=== PATIENT | male | born 1950 | race Caucasian/White ===

== ENCOUNTER 2016-12-08 10:54 | Emergency (ER) | payer OTHER ==
[~2016-12-08] VITALS: Ht 175.3 cm; Wt 84.0 kg
[~2016-12-08 10:54] MED LIST: ASPI81 PO; AZIT250T43 PO; FENO50TA PO; FISH1000 PO; FLAX10008 OR; LISI-360 PO; METO50TA PO; PROT40TA PO; SAW160TA PO; VITA100017 PO; VITA400C28 PO; VITA400C70 PO; ZOCO10TA PO
[2016-12-08 10:57] VITALS: BP 141/77; PULSE 69; RESP 16; TEMP 99.4; O2SAT 97
[2016-12-08] MEDS ORDERED: SODIUM CHLOR 0.9% 1000 ML INJ 1,000 ML IV SCH ×3 (11:33→12:49)
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
--- NOTE | 2016-12-08 11:40 | PD ---
Physical Exam Narrative Patient was seen by my research assistant member and by myself. Data Data Last Documented VS Vital Signs Date Time Temp Pulse Resp B/P (MAP) Pulse Ox O2 Delivery O2 Flow Rate FiO2 12/08/16 10:57 99.4 69 16 141/77 (98) 97 MDM Supervised Visit with FLO: Yes Santiago Almeida MD Dec 08, 2016 11:40
[2016-12-08] MEDS ORDERED: TETANUS/DIPHTHERIA TOXOID ADULT 0.5 ML VIAL IM ONE (11:45)
[2016-12-08] MEDS ORDERED: SODIUM CHLORIDE 0.9% FLUSH 10 ML FLUSH IV FLUSH PRN (11:45)
[2016-12-08] MEDS ORDERED: ACETAMINOPHEN 325 MG TAB PO ONE (11:45)
[2016-12-08] MEDS ORDERED: KETOROLAC TROMETHAMINE 30 MG/ML (IVP) VIAL IV PUSH ONE ×2 (11:45)
[2016-12-08 12:27] LABS: AUTOMATED NEUTROPHIL # 8.1 TH/MM3 (1.8-7.7); BASOPHIL # 0.1 TH/MM3 (0-0.2); BASOPHIL % 0.9 % (0.0-2.0); EOSINOPHIL # 0.1 TH/MM3 (0-0.4); EOSINOPHIL % 0.9 % (0.0-4.0); HEMO FLAGS DIFF FINAL; LYMPH % 6.8 % (9.0-44.0); LYMPHOCYTE # 0.7 TH/MM3 (1.0-4.8); MEAN CELL VOLUME 89.5 FL (80.0-100.0); MEAN CORPUSCULAR HEMOGLOBIN 30.9 PG (27.0-34.0); MEAN CORPUSCULAR HGB CONC 34.5 % (32.0-36.0); MONO % 10.1 % (0.0-8.0); NEUT % 81.3 % (16.0-70.0); PLATELET COUNT 240 TH/MM3 (150-450); RED BLOOD COUNT 5.59 MIL/MM3 (4.50-5.90); RED CELL DISTRIBUTION WIDTH 14.6 % (11.6-17.2); WHITE BLOOD COUNT 9.9 TH/MM3 (4.0-11.0)
[2016-12-08 12:42] LABS: ALT (GPT) 50 U/L (12-78); ANION GAP 9 MEQ/L (5-15); AST (GOT) 30 U/L (15-37); BICARBONATE 26.9 MEQ/L (21.0-32.0); BLOOD UREA NITROGEN 11 MG/DL (7-18); CHLORIDE 98 MEQ/L (98-107); GLOMERULAR FILTRATION RATE 63 ML/MIN (>89); POTASSIUM 3.8 MEQ/L (3.5-5.1); SODIUM (NA) 134 MEQ/L (136-145)
[2016-12-08 12:45] LABS: ALKALINE PHOSPHATASE 106 U/L (45-117); TOTAL BILIRUBIN ADULT 0.9 MG/DL (0.2-1.0)
[2016-12-08 12:46] LABS: BLOOD, URINE NEG (NEG); GLUCOSE,URINE NEG (NEG); KETONE, URINE NEG (NEG); MUCUS URINE FEW /lpf (OCC); NITRITE,URINE NEG (NEG); PH, URINE 5.5 (5.0-8.5); URINE COLOR LIGHT-YELLOW (YELLW/STRAW)
--- NOTE | 2016-12-08 12:47 | RADRPT ---
EXAM DATE/TIME: 12/08/2016 12:06 [facility] COMPARISON: No previous studies available for comparison. INDICATIONS : Fever, flu symptoms, short of breath MEDICAL HISTORY : Cardiovascular disease. SURGICAL HISTORY : CABG. ENCOUNTER: Initial ACUITY: 1 day PAIN SCORE: 0/10 LOCATION: Bilateral chest FINDINGS: A single view of the chest demonstrates the lungs to be symmetrically aerated without evidence of mas s, infiltrate or effusion. The cardiomediastinal contours are unremarkable. Osseous structures are intact. Median sternotomy/CABG changes are again noted. CONCLUSION: No evidence of acute cardiopulmonary disease. Gary Mcpherson MD on December 08, 2016 at 12:45 Board Certified Radiologist. This report was verified electronically.
[2016-12-08 12:54] LABS: COMMENT (UR) CULT NOT INDICATED; CULTURE IF INDICATED CULT NOT INDICATED
[2016-12-08 12:56] VITALS: BP 116/66; PULSE 65; RESP 17; O2SAT 100
[2016-12-08] MEDS ORDERED: IBUP-232 PO (13:26)
[2016-12-08] MEDS ORDERED: MAGICPED SWISH-SWAL (13:26)
[2016-12-08 14:06] VITALS: BP 116/65
[2016-12-09] MEDS ORDERED: METO25TA3 PO ×2 (14:49)
[2016-12-09] MEDS ORDERED: LISI-515 PO ×2 (14:49)
[2016-12-09] MEDS ORDERED: SIMV5TAB3 PO ×2 (14:49)
== END 2016-12-08 14:29 | disposition home or self-care (01) ==
LOC: NEPD 10:54
DX: B34.9 Viral infection, unspecified (principal); R21 Rash and other nonspecific skin eruption; R50.9 Fever, unspecified; R51 Headache; R53.1 Weakness; I10 Essential (primary) hypertension; E78.00 Pure hypercholesterolemia, unspecified; G47.30 Sleep apnea, unspecified; Z23 Encounter for immunization; Z95.1 Presence of aortocoronary bypass graft; Z87.39 Personal history of other diseases of the musculoskeletal system and connective tissue; Z86.79 Personal history of other diseases of the circulatory system; Z87.19 Personal history of other diseases of the digestive system; Z86.69 Personal history of other diseases of the nervous system and sense organs
CPT/HCPCS: 71010; 80053; 81001; 83605; 85025; 87040; 87804; 90471; 90714; 96374; 99284; J1885; J7030

== ENCOUNTER 2016-12-09 13:30 | Inpatient (IN) | payer OTHER, MEDICARE ==
[~2016-12-09] VITALS: Ht 175.3 cm; Wt 87.0 kg
[~2016-12-09 13:30] MED LIST changes: +IBUP-232 PO; +MAGICPED SWISH-SWAL
[2016-12-09 13:33] VITALS: BP 156/74; PULSE 74; RESP 15; TEMP 99.6; O2SAT 98
[2016-12-09] MEDS ORDERED: METO25TA3 PO ×2 (14:49)
[2016-12-09] MEDS ORDERED: LISI-515 PO ×2 (14:49)
[2016-12-09] MEDS ORDERED: SIMV5TAB3 PO ×2 (14:49)
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
[2016-12-09] MEDS ORDERED: ACYCLOVIR INJ 500 MG in SODIUM CHLORIDE 0.9% INJ 100 ML IV ONE (16:00)
[2016-12-09 16:08] LABS: BLOOD, URINE NEG (NEG); COMMENT (UR) CULT NOT INDICATED; CULTURE IF INDICATED CULT NOT INDICATED; GLUCOSE,URINE NEG (NEG); HYALINE CAST, URINE 1 /lpf (RARE); KETONE, URINE NEG (NEG); MUCUS URINE FEW /lpf (OCC); NITRITE,URINE NEG (NEG); URINE COLOR YELLOW (YELLW/STRAW)
[2016-12-09 16:11] LABS: AUTOMATED NEUTROPHIL # 11.9 TH/MM3 (1.8-7.7); BASOPHIL # 0.1 TH/MM3 (0-0.2); BASOPHIL % 0.5 % (0.0-2.0); EOSINOPHIL % 0.1 % (0.0-4.0); HEMATOCRIT 51.4 % (39.0-51.0); HEMO FLAGS DIFF FINAL; LYMPH % 3.6 % (9.0-44.0); LYMPHOCYTE # 0.5 TH/MM3 (1.0-4.8); MEAN CELL VOLUME 89.2 FL (80.0-100.0); MEAN CORPUSCULAR HEMOGLOBIN 30.6 PG (27.0-34.0); MEAN CORPUSCULAR HGB CONC 34.3 % (32.0-36.0); MONO % 6.2 % (0.0-8.0); NEUT % 89.6 % (16.0-70.0); PLATELET COUNT 224 TH/MM3 (150-450); RED BLOOD COUNT 5.76 MIL/MM3 (4.50-5.90); RED CELL DISTRIBUTION WIDTH 15.1 % (11.6-17.2); WHITE BLOOD COUNT 13.2 TH/MM3 (4.0-11.0)
[2016-12-09 16:16] LABS: APTT (PATIENT) 28.9 SEC (24.3-30.1); INTERNATIONAL NORMALIZED RATIO 1.1 RATIO
[2016-12-09] MEDS: SODIUM CHLOR 0.9% 1000 ML INJ 1,000 ML IV SCH ×4 (16:18→22:50)
--- NOTE | 2016-12-09 16:32 | RADRPT ---
EXAM DATE/TIME: 12/09/2016 15:57 [facility] COMPARISON: CHEST SINGLE AP, December 08, 2016, 12:06. INDICATIONS : Fever. MEDICAL HISTORY : Cardiovascular disease. SURGICAL HISTORY : CABG. ENCOUNTER: Initial ACUITY: 3 days PAIN SCORE: 0/10 LOCATION: Chest FINDINGS: Median sternotomy wires are noted status post cardiac surgery. The heart and mediastinal structures are normal. The pulmonary vascular pattern is also normal. Minimal discoid atelectasis is noted withi n the right midlung field. Degenerative changes are noted throughout the thoracic spine. CONCLUSION: 1. No acute cardiopulmonary disease. 2. Minimal discoid atelectasis within the right midlung field. Alfonso Eagle MD on December 09, 2016 at 16:28 Board Certified Radiologist. This report was verified electronically.
[2016-12-09 16:38] VITALS: BP 163/88; PULSE 102; RESP 24; TEMP 103; O2SAT 99
--- NOTE | 2016-12-09 16:43 | HHI.HP ---
[facility] Unknown Admission Diagnosis VARICELLA Diagnoses: Chief Complaint: FEVER Travel History International Travel<30 Days: No Contact w/Intl Traveler <30 Da: No Traveled to Known Affected Are: No History of Present Illness This is a pleasant 66 y/o male who came to ER with Fever and rash, also complaint of sore throat he was seen in emergency room yesterday with the same symptomatology was given supportive care but today is evident his compromise, the rash has worsened now multiple lesions inside his mouth, also some rash on his body and extremities, has persistent fever of 101F the patient has OA, Hyperlipidemia, GERD, Hypertension, OPAL. Patient seen in the presence of his he has painful lesions in his mouth and in his back, neck, chest and extremities, due to his actual oral compromise received Acyclovir IV will continue management with antiviral therapy, Review of Systems Constitutional: DENIES: Fever, Chills, Change in appetite Endocrine: DENIES: Heat/cold intolerance Eyes: DENIES: Blurred vision, Eye pain Except as stated in HPI: all other systems reviewed are Neg Past Family Social History Past Medical History OA Hypertension Hyperlipidemia GERD Hiatal hernia OPAL CAD status post CABG x 3 2009 Past Surgical History CABG x 3 Vasectomy Reported Medications Reported Meds & Active Scripts Active Reported Metoprolol Tartrate 25 Mg Tab Unknown Dose PO DAILY Simvastatin 5 Mg Tab Unknown Dose PO DAILY Lisinopril 20 Mg Tab 20 Mg PO DAILY Allergies: Coded Allergies: No Known Allergies (Verified Allergy, Unknown, 12/09/16) Active Ordered Medications Current Medications Medications (Trade) Dose Ordered Sig/Andres Route Start Time Stop Time Status Last Admin Sodium Chloride 1,000 ml @ 125 mls/hr Q8H IV 12/09/16 15:15 12/09/16 16:18 Acyclovir Sodium 500 mg/Sodium Chloride 100 ml @ 100 mls/hr ONCE ONCE IV 12/09/16 16:00 12/09/16 16:59 Family History Father with Heart pathology Social History Denies any toxic habits. Physical Exam Vital Signs Vital Signs Date Time Temp Pulse Resp B/P (MAP) Pulse Ox O2 Delivery O2 Flow Rate FiO2 12/09/16 13:33 99.6 74 15 156/74 (101 98 Physical Exam GENERAL: Well-nourished, well-developed patient. SKIN: Focused skin assessment warm/dry. Multiple vesicular lesions on the face , trunk, extremity. Different stages of healing. HEAD: Normocephalic. EYES: No scleral icterus. No injection or drainage. Mouth multiple small ulcers lesions on the mucous membrane including the tongue. NECK: Supple, trachea midline. No JVD or lymphadenopathy. No meningismus CARDIOVASCULAR: Regular rate and rhythm without murmurs, gallops, or rubs. RESPIRATORY: Breath sounds equal bilaterally. No accessory muscle use. GASTROINTESTINAL: Abdomen soft, non-tender, nondistended. MUSCULOSKELETAL: No cyanosis, or edema. BACK: Nontender without obvious deformity. No CVA tenderness. Neurologic exam normal. Laboratory Laboratory Tests Test 12/09/16 15:50 White Blood Count 13.2 Red Blood Count 5.76 Hemoglobin 17.6 Hematocrit 51.4 Mean Corpuscular Volume 89.2 Mean Corpuscular Hemoglobin 30.6 Mean Corpuscular Hemoglobin Concent 34.3 Red Cell Distribution Width 15.1 Platelet Count 224 Mean Platelet Volume 7.7 Neutrophils (%) (Auto) 89.6 Lymphocytes (%) (Auto) 3.6 Monocytes (%) (Auto) 6.2 Eosinophils (%) (Auto) 0.1 Basophils (%) (Auto) 0.5 Neutrophils # (Auto) 11.9 Lymphocytes # (Auto) 0.5 Monocytes # (Auto) 0.8 Eosinophils # (Auto) 0.0 Basophils # (Auto) 0.1 CBC Comment DIFF FINAL Differential Comment Prothrombin Time 12.0 Prothromb Time International Ratio 1.1 Activated Partial Thromboplast Time 28.9 Urine Color YELLOW Urine Turbidity CLEAR Urine pH 6.0 Urine Specific [place] 1.014 Urine Protein TRACE Urine Glucose (UA) NEG Urine Ketones NEG Urine Occult Blood NEG Urine Nitrite NEG Urine Bilirubin NEG Urine Urobilinogen LESS THAN 2.0 Urine Leukocyte Esterase NEG Urine Hyaline Casts 1 Urine Mucus FEW Microscopic Urinalysis Comment CULT NOT INDICATED Date/Time Source Procedure Growth Status 12/09/16 15:50 Blood Peripheral Aerobic Blood Culture Pending Received 12/09/16 15:50 Blood Peripheral Anaerobic Blood Culture Pending Received Result Diagram: 12/09/16 1550 Imaging No imaging studies Caprini VTE Risk Assessment Caprini VTE Risk Assessment: Mod/High Risk (score >= 2) Caprini Risk Assessment Model Point Value = 1 Point Value = 2 Point Value = 3 Point Value = 5 Age 41-60 Minor surgery BMI > 25 kg/m2 Swollen legs Varicose veins or History of unexplained or recurrent spontaneous Oral contraceptives or hormone replacement Sepsis (< 1 month) Serious lung disease, including pneumonia (< 1 month) Abnormal pulmonary function Acute myocardial infarction Congestive heart failure (< 1 month) History of inflammatory bowel disease Medical patient at bed rest Age 61-74 Arthroscopic surgery Major open surgery (> 45 min) Laparoscopic surgery (> 45 min) Malignancy Confined to bed (> 72 hours) Immobilizing plaster cast Central venous access Age >= 75 History of VTE Family history of VTE Factor V Leiden Prothrombin [id number] Lupus anticoagulant Anticardiolipin antibodies Elevated serum homocysteine Heparin-induced thrombocytopenia Other congenital or acquired thrombophilia Stroke (< 1 month) Elective arthroplasty Hip, pelvis, or leg fracture Acute spinal cord injury (< 1 month) Prophylaxis Regimen Total Risk Factor Score Risk Level Prophylaxis Regimen 0-1 Low Early ambulation 2 Moderate Order ONE of the following: *Sequential Compression Device (SCD) *Heparin 5000 units SQ BID 3-4 Higher Order ONE of the following medications: *Heparin 5000 units SQ TID *Enoxaparin/Lovenox 40 mg SQ daily (WT < 150 kg, CrCl > 30 mL/min) *Enoxaparin/Lovenox 30 mg SQ daily (WT < 150 kg, CrCl > 10-29 mL/min) *Enoxaparin/Lovenox 30 mg SQ BID (WT < 150 kg, CrCl > 30 mL/min) AND/OR *Sequential Compression Device (SCD) 5 or more Highest Order ONE of the following medications: *Heparin 5000 units SQ TID (Preferred with Epidurals) *Enoxaparin/Lovenox 40 mg SQ daily (WT < 150 kg, CrCl > 30 mL/min) *Enoxaparin/Lovenox 30 mg SQ daily (WT < 150 kg, CrCl > 10-29 mL/min) *Enoxaparin/Lovenox 30 mg SQ BID (WT < 150 kg, CrCl > 30 mL/min) AND *Sequential Compression Device (SCD) Assessment and Plan Assessment and Plan 1. Complicated Varicella will switch to Valacyclovir 1 gram every 8 hours, continue pain medicine ID specialist consulted. 2. OA by history 3. Hypertension controlled continue home medicines 4. Hyperlipidemia to continue Statins 5. GERD/Hiatal hernia giving Famotidine 6. CAD status post CABG x 3 in 2009 DVT prophylaxis with Lovenox Code Status Full Code. Discussed Condition With Patient and his in the room Doctor Santiago Almeida Emergency Medicine specialist Doctor Sparkle Munoz Infectious disease present in the room to give advise appreciated Physician Certification 2 Midnight Certification Type: Admission for Inpatient Services Order for Inpatient Services The services are ordered in accordance with Medicare regulations or non- Medicare payer requirements, as applicable. In the case of services not specified as inpatient-only, they are appropriately provided as inpatient services in accordance with the 2-midnight benchmark. Estimated LOS (days): 3 days is the estimated time the patient will need to remain in the hospital, assuming treatment plan goals are met and no additional complications. Post-Hospital Plan: Not yet determined Wilfred Bills MD Dec 09, 2016 16:43
[2016-12-09] MEDS ORDERED: BISACODYL 10 MG SUPP RECTAL PRN (16:45)
[2016-12-09] MEDS ORDERED: ONDANSETRON HCL 4 MG/2 ML VIAL IVP PRN (16:45)
[2016-12-09] MEDS ORDERED: SENNOSIDES 8.6 MG TAB PO PRN (16:45)
[2016-12-09] MEDS ORDERED: SODIUM CHLORIDE 0.9% FLUSH 10 ML FLUSH IV FLUSH PRN (16:45)
[2016-12-09] MEDS ORDERED: MAGNESIUM HYDROXIDE SUSP 30 ML CUP PO PRN (16:45)
[2016-12-09] MEDS ORDERED: ACETAMINOPHEN 325 MG TAB PO ONE (16:45)
[2016-12-09] MEDS ORDERED: NALOXONE HCL 0.4 MG/ML AMP IV PUSH PRN (16:45)
[2016-12-09] MEDS ORDERED: LACTULOSE SYRUP 20 GM/30 ML CUP PO PRN (16:45)
[2016-12-09 16:55] LABS: ALKALINE PHOSPHATASE 126 U/L (45-117); ALT (GPT) 71 U/L (12-78); ANION GAP 7 MEQ/L (5-15); AST (GOT) 84 U/L (15-37); BICARBONATE 26.4 MEQ/L (21.0-32.0); BLOOD UREA NITROGEN 8 MG/DL (7-18); CHLORIDE 96 MEQ/L (98-107); GLOMERULAR FILTRATION RATE 60 ML/MIN (>89); SODIUM (NA) 129 MEQ/L (136-145); TOTAL BILIRUBIN ADULT 1.2 MG/DL (0.2-1.0)
[2016-12-09 16:57] LABS: POTASSIUM 4.8 MEQ/L (3.5-5.1)
[2016-12-09] MEDS ORDERED: MORPHINE SULFATE 2 MG/ML INJ IM PRN (17:15)
[2016-12-09] MEDS: valACYclovir HCL 500 MG TAB PO SCH (19:13)
[2016-12-09] MEDS: ENOXAPARIN SODIUM 40 MG/0.4 ML SYRINGE SQ SCH (19:13)
[2016-12-09 19:14] VITALS: TEMP 100
[2016-12-09] MEDS: SODIUM CHLORIDE 0.9% FLUSH 10 ML FLUSH IV FLUSH SCH (21:17)
[2016-12-09 21:20] VITALS: BP 116/58; PULSE 108; RESP 20; TEMP 103.1; O2SAT 95
[2016-12-09 21:28] LABS: HDL CHOLESTEROL 52.6 MG/DL (40.0-60.0); INDIRECT BILIRUBIN 1.1 MG/DL (0.0-0.8); TOTAL BILIRUBIN ADULT 1.2 MG/DL (0.2-1.0)
[2016-12-09] MEDS: DOCUSATE SODIUM 50 MG/SENNA 8.6 MG TAB PO SCH (21:30)
[2016-12-09] MEDS: ACETAMINOPHEN 325 MG TAB PO PRN (21:32)
[2016-12-09 22:15] VITALS: BP 137/65; PULSE 95; RESP 16; TEMP 101.5; O2SAT 93
[2016-12-09] MEDS: ACETAMINOPHEN/HYDROcodone 325 MG/5 MG TAB PO PRN (23:19)
[2016-12-09] MEDS: diphenhydrAMINE HCL 25 MG CAP PO PRN (23:19)
[2016-12-10] VITALS (7 sets, daily range): BP systolic 101–167; BP diastolic 52–76; PULSE 73–93; RESP 18–20; TEMP 99.7–103; O2SAT 93–96
[2016-12-10] MEDS: ACETAMINOPHEN 325 MG TAB PO PRN ×2 (01:35→18:07)
[2016-12-10] MEDS: ACETAMINOPHEN/HYDROcodone 325 MG/5 MG TAB PO PRN ×4 (04:36→20:51)
[2016-12-10] MEDS: valACYclovir HCL 500 MG TAB PO SCH ×3 (05:37→20:51)
[2016-12-10] MEDS: SODIUM CHLOR 0.9% 1000 ML INJ 1,000 ML IV SCH ×4 (07:15→23:15)
[2016-12-10] MEDS: DOCUSATE SODIUM 50 MG/SENNA 8.6 MG TAB PO SCH ×2 (09:19→20:50)
[2016-12-10] MEDS: METOPROLOL SUCCINATE 25 MG EXTENDED RELEASE TAB PO SCH (09:19)
[2016-12-10] MEDS: SODIUM CHLORIDE 0.9% FLUSH 10 ML FLUSH IV FLUSH SCH ×2 (09:19→22:22)
[2016-12-10] MEDS: LISINOPRIL 20 MG TAB PO SCH (09:19)
[2016-12-10 11:40] LABS: HEMOGLOBIN A1a 1.3 %; HEMOGLOBIN Ao 84.9 %; HEMOGLOBIN F 1.1 %; HEMOGLOBIN LA1C 1.6 %; HEMOGLOBIN P3 3.8 %
--- NOTE | 2016-12-10 15:20 | HHI.PR ---
Subjective Remarks This is a pleasant 66 y/o male who came to ER with Fever and rash, also complaint of sore throat he was seen in emergency room yesterday with the same symptomatology was given supportive care but today is evident his compromise, the rash has worsened now multiple lesions inside his mouth, also some rash on his body and extremities, has persistent fever of 101F the patient has OA, Hyperlipidemia, GERD, Hypertension, OPAL. Patient seen in the presence of his he has painful lesions in his mouth and in his back, neck, chest and extremities, due to his actual oral compromise received Acyclovir IV will continue management with antiviral therapy. 12/10: Stable in his bedroom discussed with him and his , he is very painful , not feeling he is improving, yesterday was seen in the presence of Doctor Tammy, viral culture asked not yet any result in EMR asked for ID consult, continue present care added Magic mouth Wash and Protein shakes with his food. no nausea , vomit or diarrhea. GENERAL: Well-nourished, well-developed patient. SKIN: Focused skin assessment warm/dry. Multiple vesicular lesions on the face , trunk, extremity. Different stages of healing. HEAD: Normocephalic. EYES: No scleral icterus. No injection or drainage. Mouth multiple small ulcers lesions on the mucous membrane including the tongue. NECK: Supple, trachea midline. No JVD or lymphadenopathy. No meningismus CARDIOVASCULAR: Regular rate and rhythm without murmurs, gallops, or rubs. RESPIRATORY: Breath sounds equal bilaterally. No accessory muscle use. GASTROINTESTINAL: Abdomen soft, non-tender, nondistended. MUSCULOSKELETAL: No cyanosis, or edema. BACK: Nontender without obvious deformity. No CVA tenderness. Neurologic exam normal. Laboratory Laboratory Tests Test 12/09/16 15:50 White Blood Count 13.2 Red Blood Count 5.76 Hemoglobin 17.6 Hematocrit 51.4 Mean Corpuscular Volume 89.2 Mean Corpuscular Hemoglobin 30.6 Mean Corpuscular Hemoglobin Concent 34.3 Red Cell Distribution Width 15.1 Platelet Count 224 Mean Platelet Volume 7.7 Neutrophils (%) (Auto) 89.6 Lymphocytes (%) (Auto) 3.6 Monocytes (%) (Auto) 6.2 Eosinophils (%) (Auto) 0.1 Basophils (%) (Auto) 0.5 Neutrophils # (Auto) 11.9 Lymphocytes # (Auto) 0.5 Monocytes # (Auto) 0.8 Eosinophils # (Auto) 0.0 Basophils # (Auto) 0.1 CBC Comment DIFF FINAL Differential Comment Prothrombin Time 12.0 Prothromb Time International Ratio 1.1 Activated Partial Thromboplast Time 28.9 Urine Color YELLOW Urine Turbidity CLEAR Urine pH 6.0 Urine Specific [place] 1.014 Urine Protein TRACE Urine Glucose (UA) NEG Urine Ketones NEG Urine Occult Blood NEG Urine Nitrite NEG Urine Bilirubin NEG Urine Urobilinogen LESS THAN 2.0 Urine Leukocyte Esterase NEG Urine Hyaline Casts 1 Urine Mucus FEW Microscopic Urinalysis Comment CULT NOT INDICATED Date/Time Source Procedure Growth Status 12/09/16 15:50 Blood Peripheral Aerobic Blood Culture Pending Received 12/09/16 15:50 Blood Peripheral Anaerobic Blood Culture Pending Received Result Diagram: 12/09/16 1550 Imaging No imaging studies Septic Shock Reassessment Septic Shock Reassessment Caprini VTE Risk Assessment Caprini VTE Risk Assessment Caprini VTE Risk Assessment: Mod/High Risk (score >= 2) Caprini Risk Assessment Model Point Value = 1 Point Value = 2 Point Value = 3 Point Value = 5 Age 41-60 Minor surgery BMI > 25 kg/m2 Swollen legs Varicose veins or History of unexplained or recurrent spontaneous Oral contraceptives or hormone replacement Sepsis (< 1 month) Serious lung disease, including pneumonia (< 1 month) Abnormal pulmonary function Acute myocardial infarction Congestive heart failure (< 1 month) History of inflammatory bowel disease Medical patient at bed rest Age 61-74 Arthroscopic surgery Major open surgery (> 45 min) Laparoscopic surgery (> 45 min) Malignancy Confined to bed (> 72 hours) Immobilizing plaster cast Central venous access Age >= 75 History of VTE Family history of VTE Factor V Leiden Prothrombin [id number] Lupus anticoagulant Anticardiolipin antibodies Elevated serum homocysteine Heparin-induced thrombocytopenia Other congenital or acquired thrombophilia Stroke (< 1 month) Elective arthroplasty Hip, pelvis, or leg fracture Acute spinal cord injury (< 1 month) Prophylaxis Regimen Total Risk Factor Score Risk Level Prophylaxis Regimen 0-1 Low Early ambulation 2 Moderate Order ONE of the following: *Sequential Compression Device (SCD) *Heparin 5000 units SQ BID 3-4 Higher Order ONE of the following medications: *Heparin 5000 units SQ TID *Enoxaparin/Lovenox 40 mg SQ daily (WT < 150 kg, CrCl > 30 mL/min) *Enoxaparin/Lovenox 30 mg SQ daily (WT < 150 kg, CrCl > 10-29 mL/min) *Enoxaparin/Lovenox 30 mg SQ BID (WT < 150 kg, CrCl > 30 mL/min) AND/OR *Sequential Compression Device (SCD) 5 or more Highest Order ONE of the following medications: *Heparin 5000 units SQ TID (Preferred with Epidurals) *Enoxaparin/Lovenox 40 mg SQ daily (WT < 150 kg, CrCl > 30 mL/min) *Enoxaparin/Lovenox 30 mg SQ daily (WT < 150 kg, CrCl > 10-29 mL/min) *Enoxaparin/Lovenox 30 mg SQ BID (WT < 150 kg, CrCl > 30 mL/min) AND *Sequential Compression Device (SCD) Assessment and Plan Assessment and Plan Assessment and Plan 1. Complicated Varicella will switch to Valacyclovir 1 gram every 8 hours, continue pain medicine ID specialist consulted. 2. OA by history 3. Hypertension controlled continue home medicines 4. Hyperlipidemia to continue Statins 5. GERD/Hiatal hernia giving Famotidine 6. CAD status post CABG x 3 in 2008 DVT prophylaxis with Lovenox Code Status Full Code. Discussed Condition With Patient and his in the room Doctor Santiago Almeida Emergency Medicine specialist Doctor Sparkle Munoz Infectious disease present in the room to give advise appreciated 2 Midnight Certification Physician Certification 2 Midnight Certification Type: Admission for Inpatient Services Order for Inpatient Services The services are ordered in accordance with Medicare regulations or non- Medicare payer requirements, as applicable. In the case of services not specified as inpatient-only, they are appropriately provided as inpatient services in accordance with the 2-midnight benchmark. Estimated LOS (days): 3 days is the estimated time the patient will need to remain in the hospital, assuming treatment plan goals are met and no additional complications. Post-Hospital Plan: Not yet determined Wilfred Bills MD Dec 09, 2016 16:43 Objective Vital Signs Date Time Temp Pulse Resp B/P (MAP) Pulse Ox O2 Delivery O2 Flow Rate FiO2 12/10/16 12:07 100.2 90 18 101/56 (71) 93 12/10/16 07:00 Room Air 12/10/16 04:15 99.7 73 19 101/52 (68) 96 12/10/16 04:15 Room Air 12/10/16 02:45 101.4 12/10/16 01:30 102.1 83 20 110/58 (75) 96 12/10/16 01:30 Room Air 12/09/16 22:30 12/09/16 22:15 Room Air 12/09/16 22:15 101.5 95 16 137/65 (89) 93 12/09/16 21:20 103.1 108 20 116/58 (77) 95 Room Air 12/09/16 19:14 100.0 12/09/16 16:38 103.0 102 24 163/88 (113) 99 Room Air I/O 12/09/16 12/09/16 12/09/16 12/10/16 12/10/16 12/10/16 07:00 15:00 23:00 07:00 15:00 23:00 Intake Total 1366 ml Output Total 700 ml Balance 666 ml Intake Oral 720 ml IV Total 646 ml Output Urine Total 700 ml # Bowel Movements 0 Result Diagram: 12/09/16 1550 12/09/16 1550 Imaging Last Impressions Chest X-Ray 12/09/16 1513 Signed Impressions: Service Date/Time: Friday, December 09, 2016 15:57 - CONCLUSION: 1. No acute cardiopulmonary disease. 2. Minimal discoid atelectasis within the right midlung field. Alfonso Eagle MD Procedures None Other Results Laboratory Tests Test 12/09/16 15:50 12/09/16 17:30 White Blood Count 13.2 TH/MM3 Red Blood Count 5.76 MIL/MM3 Hemoglobin 17.6 GM/DL Hematocrit 51.4 % Mean Corpuscular Volume 89.2 FL Mean Corpuscular Hemoglobin 30.6 PG Mean Corpuscular Hemoglobin Concent 34.3 % Red Cell Distribution Width 15.1 % Platelet Count 224 TH/MM3 Mean Platelet Volume 7.7 FL Neutrophils (%) (Auto) 89.6 % Lymphocytes (%) (Auto) 3.6 % Monocytes (%) (Auto) 6.2 % Eosinophils (%) (Auto) 0.1 % Basophils (%) (Auto) 0.5 % Neutrophils # (Auto) 11.9 TH/MM3 Lymphocytes # (Auto) 0.5 TH/MM3 Monocytes # (Auto) 0.8 TH/MM3 Eosinophils # (Auto) 0.0 TH/MM3 Basophils # (Auto) 0.1 TH/MM3 CBC Comment DIFF FINAL Differential Comment Erythrocyte Sedimentation Rate 11 mm/hr Prothrombin Time 12.0 SEC Prothromb Time International Ratio 1.1 RATIO Activated Partial Thromboplast Time 28.9 SEC Urine Color YELLOW Urine Turbidity CLEAR Urine pH 6.0 Urine Specific [place] 1.014 Urine Protein TRACE mg/dL Urine Glucose (UA) NEG mg/dL Urine Ketones NEG mg/dL Urine Occult Blood NEG Urine Nitrite NEG Urine Bilirubin NEG Urine Urobilinogen LESS THAN 2.0 MG/DL Urine Leukocyte Esterase NEG Urine Hyaline Casts 1 /lpf Urine Mucus FEW /lpf Microscopic Urinalysis Comment CULT NOT INDICATED Blood Urea Nitrogen 8 MG/DL Creatinine 1.21 MG/DL Random Glucose 102 MG/DL Total Protein 9.3 GM/DL Albumin 4.2 GM/DL Calcium Level 9.0 MG/DL Alkaline Phosphatase 126 U/L Aspartate Amino Transf (AST/SGOT) 84 U/L Alanine Aminotransferase (ALT/SGPT) 71 U/L Total Bilirubin 1.2 MG/DL Sodium Level 129 MEQ/L Potassium Level 4.8 MEQ/L Chloride Level 96 MEQ/L Carbon Dioxide Level 26.4 MEQ/L Anion Gap 7 MEQ/L Estimat Glomerular Filtration Rate 60 ML/MIN Hemoglobin A1c 5.8 % Direct Bilirubin 0.1 MG/DL Indirect Bilirubin 1.1 MG/DL C-Reactive Protein 25.00 MG/DL Triglycerides Level 99 MG/DL Cholesterol Level 125 MG/DL LDL Cholesterol 53 MG/DL HDL Cholesterol 52.6 MG/DL Cholesterol/HDL Ratio 2.37 RATIO Thyroid Stimulating Hormone 3rd Gen 1.200 uIU/ML Objective Remarks GENERAL: Well-nourished, well-developed patient. SKIN: Focused skin assessment warm/dry. Multiple vesicular lesions on the face , trunk, extremity. Different stages of healing. HEAD: Normocephalic. EYES: No scleral icterus. No injection or drainage. Mouth multiple small ulcers lesions on the mucous membrane including the tongue. increased in size and more painful than yesterday. NECK: Supple, trachea midline. No JVD or lymphadenopathy. No meningismus CARDIOVASCULAR: Regular rate and rhythm without murmurs, gallops, or rubs. RESPIRATORY: Breath sounds equal bilaterally. No accessory muscle use. GASTROINTESTINAL: Abdomen soft, non-tender, nondistended. MUSCULOSKELETAL: No cyanosis, or edema. BACK: Nontender without obvious deformity. No CVA tenderness. Neurologic exam normal. Medications and IVs Current Medications Medications (Trade) Dose Ordered Sig/Andres Route Start Time Stop Time Status Last Admin Sodium Chloride 1,000 ml @ 125 mls/hr Q8H IV 12/09/16 15:15 12/09/16 22:50 Sodium Chloride 1,000 ml @ 100 mls/hr Q10H IV 12/09/16 16:40 12/10/16 10:14 (NS Flush) 2 ml UNSCH PRN IV FLUSH 12/09/16 16:45 (NS Flush) 2 ml BID IV FLUSH 12/09/16 21:00 12/10/16 09:19 (Tylenol) 650 mg Q4H PRN PO 12/09/16 16:45 12/10/16 01:35 (Zofran Inj) 4 mg Q6H PRN IVP 12/09/16 16:45 (Lovenox Inj) 40 mg Q24H SQ 12/09/16 17:00 12/09/16 19:13 (Narcan Inj) 0.4 mg UNSCH PRN IV PUSH 12/09/16 16:45 (Ambreen-Colace) 1 tab BID PO 12/09/16 21:00 12/10/16 09:19 (Milk Of Magnesia Liq) 30 ml Q12H PRN PO 12/09/16 16:45 (Senokot) 17.2 mg Q12H PRN PO 12/09/16 16:45 (Dulcolax Supp) 10 mg DAILY PRN RECTAL 12/09/16 16:45 (Lactulose Liq) 30 ml DAILY PRN PO 12/09/16 16:45 (Benadryl) 25 mg Q6H PRN PO 12/09/16 16:45 12/09/16 23:19 (Valtrex) 1,000 mg Q8HR PO 12/09/16 17:15 12/10/16 13:57 ([place] 5-325 Mg) 1 tab Q4H PRN PO 12/09/16 17:15 12/10/16 13:57 (Morphine Inj) 2 mg Q4H PRN IM 12/09/16 17:15 (Prinivil) 20 mg DAILY PO 12/10/16 09:00 12/10/16 09:19 (Toprol Xl) 12.5 mg DAILY PO 12/10/16 09:00 12/10/16 09:19 A/P Assessment and Plan 1. Complicated Varicella versus Hand foot and mouth disease, continue Valacyclovir 1 gram every 8 hours, continue pain medicine ID specialist consulted. Magic Mouthwash added. he has lesions on both palms , mouth and buttock area and extremities. suspected Enterovirus infection may produce this pathology, awaiting ID consult placed today. Continue supportive care. 2. OA by history 3. Hypertension controlled continue home medicines 4. Hyperlipidemia to continue Statins 5. GERD/Hiatal hernia giving Famotidine 6. CAD status post CABG x 3 in 2008 DVT prophylaxis with Lovenox Code Status Full Code. Discussed Condition With Patient and his . also nurse Miss Avalos present. Discharge Planning Once cleared by specialists. Wilfred Bills MD Dec 10, 2016 15:20
[2016-12-10] MEDS: ENOXAPARIN SODIUM 40 MG/0.4 ML SYRINGE SQ SCH (17:17)
[2016-12-10 17:48] LABS: AUTOMATED NEUTROPHIL # 5.9 TH/MM3 (1.8-7.7); BASOPHIL % 0.7 % (0.0-2.0); EOSINOPHIL % 0.2 % (0.0-4.0); HEMATOCRIT 43.2 % (39.0-51.0); HEMO FLAGS DIFF FINAL; LYMPH % 10.1 % (9.0-44.0); LYMPHOCYTE # 0.7 TH/MM3 (1.0-4.8); MEAN CORPUSCULAR HEMOGLOBIN 30.6 PG (27.0-34.0); MONO % 6.3 % (0.0-8.0); NEUT % 82.7 % (16.0-70.0); PLATELET COUNT 164 TH/MM3 (150-450); RED CELL DISTRIBUTION WIDTH 14.8 % (11.6-17.2); WHITE BLOOD COUNT 7.2 TH/MM3 (4.0-11.0)
[2016-12-10 18:06] LABS: BICARBONATE 22.6 MEQ/L (21.0-32.0); POTASSIUM 3.6 MEQ/L (3.5-5.1)
[2016-12-10] MEDS: NYSTAT/DIPHENHY/LIDO MOUTHWASH (Adult) 120ML SWISH-SWAL SCH ×2 (18:07→22:21)
[2016-12-10] MEDS: diphenhydrAMINE HCL 25 MG CAP PO PRN (22:21)
[2016-12-11] VITALS (7 sets, daily range): BP systolic 123–175; BP diastolic 75–110; PULSE 83–122; RESP 20–25; TEMP 98.2–101.9; O2SAT 94–98
[2016-12-11] MEDS: ACETAMINOPHEN 325 MG TAB PO PRN ×4 (01:11→17:57)
[2016-12-11] MEDS: ACETAMINOPHEN/HYDROcodone 325 MG/5 MG TAB PO PRN ×4 (01:47→21:55)
[2016-12-11] MEDS: SODIUM CHLOR 0.9% 1000 ML INJ 1,000 ML IV SCH ×4 (03:54→21:56)
[2016-12-11] MEDS: valACYclovir HCL 500 MG TAB PO SCH ×3 (05:44→21:54)
[2016-12-11] MEDS: diphenhydrAMINE HCL 25 MG CAP PO PRN (05:47)
[2016-12-11] MEDS: NYSTAT/DIPHENHY/LIDO MOUTHWASH (Adult) 120ML SWISH-SWAL SCH ×2 (09:00→12:01)
[2016-12-11] MEDS: SODIUM CHLORIDE 0.9% FLUSH 10 ML FLUSH IV FLUSH SCH ×2 (09:00→21:55)
[2016-12-11] MEDS: METOPROLOL SUCCINATE 25 MG EXTENDED RELEASE TAB PO SCH (09:13)
[2016-12-11] MEDS: LISINOPRIL 20 MG TAB PO SCH (09:13)
[2016-12-11] MEDS: DOCUSATE SODIUM 50 MG/SENNA 8.6 MG TAB PO SCH ×2 (09:13→21:54)
--- NOTE | 2016-12-11 14:19 | HHI.PR ---
Subjective Remarks This is a pleasant 66 y/o male who came to ER with Fever and rash, also complaint of sore throat he was seen in emergency room yesterday with the same symptomatology was given supportive care but today is evident his compromise, the rash has worsened now multiple lesions inside his mouth, also some rash on his body and extremities, has persistent fever of 101F the patient has OA, Hyperlipidemia, GERD, Hypertension, OPAL. Patient seen in the presence of his he has painful lesions in his mouth and in his back, neck, chest and extremities, due to his actual oral compromise received Acyclovir IV will continue management with antiviral therapy. 12/10: Stable in his bedroom discussed with him and his , he is very painful , not feeling he is improving, yesterday was seen in the presence of Doctor Tammy, viral culture asked not yet any result in EMR asked for ID consult, continue present care added Magic mouth Wash and Protein shakes with his food. 12/11: Seen in his bedroom and discussed with nurse Miss Avalos and with ID specialist Doctor Lupe, also her Daughter talking with Doctor Andrade through the phone. no nausea, vomit or diarrhea, continue with Fever. Objective Vital Signs Date Time Temp Pulse Resp B/P (MAP) Pulse Ox O2 Delivery O2 Flow Rate FiO2 12/11/16 13:40 99.6 122 123/75 (91) 12/11/16 12:26 100.8 121 25 175/110 (131) 97 12/11/16 08:00 98.2 83 20 157/79 (105) 96 12/11/16 05:41 101.9 91 20 150/86 (107) 98 12/11/16 02:00 99.1 12/11/16 01:06 101.3 86 20 135/77 (96) 95 12/10/16 22:23 Room Air 12/10/16 22:23 99.7 12/10/16 21:23 Room Air 12/10/16 20:00 101.0 92 18 146/70 (95) 95 12/10/16 20:00 Room Air 12/10/16 18:39 103.0 93 18 167/76 (106) 96 I/O 12/10/16 12/10/16 12/10/16 12/11/16 12/11/16 12/11/16 07:00 15:00 23:00 07:00 15:00 23:00 Intake Total 1366 ml 1740 ml 1000 ml Output Total 700 ml Balance 666 ml 1740 ml 1000 ml Intake Oral 720 ml 740 ml IV Total 646 ml 1000 ml 1000 ml Output Urine Total 700 ml # Bowel Movements 0 Result Diagram: 12/10/16 1720 12/10/16 1720 Imaging Last Impressions Chest X-Ray 12/09/16 1513 Signed Impressions: Service Date/Time: Friday, December 09, 2016 15:57 - CONCLUSION: 1. No acute cardiopulmonary disease. 2. Minimal discoid atelectasis within the right midlung field. Alfonso Eagle MD Procedures None Other Results Laboratory Tests Test 12/09/16 15:50 12/09/16 17:30 12/10/16 17:20 Erythrocyte Sedimentation Rate 11 mm/hr Prothrombin Time 12.0 SEC Prothromb Time International Ratio 1.1 RATIO Activated Partial Thromboplast Time 28.9 SEC Urine Color YELLOW Urine Turbidity CLEAR Urine pH 6.0 Urine Specific [place] 1.014 Urine Protein TRACE mg/dL Urine Glucose (UA) NEG mg/dL Urine Ketones NEG mg/dL Urine Occult Blood NEG Urine Nitrite NEG Urine Bilirubin NEG Urine Urobilinogen LESS THAN 2.0 MG/DL Urine Leukocyte Esterase NEG Urine Hyaline Casts 1 /lpf Urine Mucus FEW /lpf Microscopic Urinalysis Comment CULT NOT INDICATED Hemoglobin A1c 5.8 % Total Bilirubin 1.2 MG/DL Direct Bilirubin 0.1 MG/DL Indirect Bilirubin 1.1 MG/DL Blood Urea Nitrogen 8 MG/DL 8 MG/DL Creatinine 1.21 MG/DL 0.90 MG/DL Random Glucose 102 MG/DL 90 MG/DL Total Protein 9.3 GM/DL Albumin 4.2 GM/DL Calcium Level 9.0 MG/DL 7.9 MG/DL Alkaline Phosphatase 126 U/L Aspartate Amino Transf (AST/SGOT) 84 U/L Alanine Aminotransferase (ALT/SGPT) 71 U/L Sodium Level 129 MEQ/L 135 MEQ/L Potassium Level 4.8 MEQ/L 3.6 MEQ/L Chloride Level 96 MEQ/L 102 MEQ/L Carbon Dioxide Level 26.4 MEQ/L 22.6 MEQ/L C-Reactive Protein 25.00 MG/DL Triglycerides Level 99 MG/DL Cholesterol Level 125 MG/DL LDL Cholesterol 53 MG/DL HDL Cholesterol 52.6 MG/DL Cholesterol/HDL Ratio 2.37 RATIO Thyroid Stimulating Hormone 3rd Gen 1.200 uIU/ML White Blood Count 7.2 TH/MM3 Red Blood Count 4.80 MIL/MM3 Hemoglobin 14.7 GM/DL Hematocrit 43.2 % Mean Corpuscular Volume 90.0 FL Mean Corpuscular Hemoglobin 30.6 PG Mean Corpuscular Hemoglobin Concent 34.0 % Red Cell Distribution Width 14.8 % Platelet Count 164 TH/MM3 Mean Platelet Volume 7.6 FL Neutrophils (%) (Auto) 82.7 % Lymphocytes (%) (Auto) 10.1 % Monocytes (%) (Auto) 6.3 % Eosinophils (%) (Auto) 0.2 % Basophils (%) (Auto) 0.7 % Neutrophils # (Auto) 5.9 TH/MM3 Lymphocytes # (Auto) 0.7 TH/MM3 Monocytes # (Auto) 0.5 TH/MM3 Eosinophils # (Auto) 0.0 TH/MM3 Basophils # (Auto) 0.0 TH/MM3 CBC Comment DIFF FINAL Differential Comment Anion Gap 10 MEQ/L Estimat Glomerular Filtration Rate 84 ML/MIN Objective Remarks GENERAL: Well-nourished, well-developed patient. SKIN: Focused skin assessment warm/dry. Multiple vesicular lesions on the face , trunk, extremity. Different stages of healing. HEAD: Normocephalic. EYES: No scleral icterus. No injection or drainage. Mouth multiple small ulcers lesions on the mucous membrane including the tongue. increased in size and more painful than yesterday. NECK: Supple, trachea midline. No JVD or lymphadenopathy. No meningismus CARDIOVASCULAR: Regular rate and rhythm without murmurs, gallops, or rubs. RESPIRATORY: Breath sounds equal bilaterally. No accessory muscle use. GASTROINTESTINAL: Abdomen soft, non-tender, nondistended. MUSCULOSKELETAL: No cyanosis, or edema. BACK: Nontender without obvious deformity. No CVA tenderness. Neurologic exam normal. Medications and IVs Current Medications Medications (Trade) Dose Ordered Sig/Andres Route Start Time Stop Time Status Last Admin Sodium Chloride 1,000 ml @ 125 mls/hr Q8H IV 12/09/16 15:15 12/09/16 22:50 Sodium Chloride 1,000 ml @ 100 mls/hr Q10H IV 12/09/16 16:40 12/11/16 13:52 (NS Flush) 2 ml UNSCH PRN IV FLUSH 12/09/16 16:45 (NS Flush) 2 ml BID IV FLUSH 12/09/16 21:00 12/10/16 22:22 (Tylenol) 650 mg Q4H PRN PO 12/09/16 16:45 12/11/16 12:28 (Zofran Inj) 4 mg Q6H PRN IVP 12/09/16 16:45 (Lovenox Inj) 40 mg Q24H SQ 12/09/16 17:00 12/10/16 17:17 (Narcan Inj) 0.4 mg UNSCH PRN IV PUSH 12/09/16 16:45 (Ambreen-Colace) 1 tab BID PO 12/09/16 21:00 12/11/16 09:13 (Milk Of Magnesia Liq) 30 ml Q12H PRN PO 12/09/16 16:45 (Senokot) 17.2 mg Q12H PRN PO 12/09/16 16:45 (Dulcolax Supp) 10 mg DAILY PRN RECTAL 12/09/16 16:45 (Lactulose Liq) 30 ml DAILY PRN PO 12/09/16 16:45 (Benadryl) 25 mg Q6H PRN PO 12/09/16 16:45 12/11/16 05:47 (Valtrex) 1,000 mg Q8HR PO 12/09/16 17:15 12/11/16 13:43 ([place] 5-325 Mg) 1 tab Q4H PRN PO 12/09/16 17:15 12/11/16 07:50 (Morphine Inj) 2 mg Q4H PRN IM 12/09/16 17:15 (Prinivil) 20 mg DAILY PO 12/10/16 09:00 12/11/16 09:13 (Toprol Xl) 12.5 mg DAILY PO 12/10/16 09:00 12/11/16 09:13 (Magic Mouthwash Adult Liq) 5 ml QID SWISH-SWAL 12/10/16 18:00 12/10/16 22:21 A/P Assessment and Plan 1. Complicated Varicella versus Hand foot and mouth disease, continue Valacyclovir 1 gram every 8 hours, continue pain medicine ID specialist consulted. Magic Mouthwash added. he has lesions on both palms , mouth and buttock area and extremities. suspected Enterovirus infection may produce this pathology, awaiting ID consult placed today. Continue supportive care. discussed with ID specialist Doctor Dolores Andrade she is more prone for Diagnosis of Hand ,foot and mouth disease. but will try to rule out other infections. 2. OA by history 3. Hypertension controlled continue home medicines 4. Hyperlipidemia to continue Statins 5. GERD/Hiatal hernia giving Famotidine 6. CAD status post CABG x 3 in 2008 DVT prophylaxis with Lovenox Code Status Full Code. Discussed Condition With Patient and his . also nurse Miss Avalos present. Discussed with ID specialist Doctor Dolores Andrade Discharge Planning Once cleared by specialists. Wilfred Bills MD Dec 11, 2016 14:19
--- NOTE | 2016-12-11 15:30 | PD.ID.CON ---
History of Present Illness Service ID Consult Requested By Dr Amaral Reason for Consult suspected chickenpox Primary Care Physician Unknown Diagnoses: History of Present Illness 66 yo male presented with few days onset of high fevers, buccal and tounge ulcerations and scattred non prupitic skin lesions, both maculopapualr and vesilular He is not aware if he ever had a chickenpox and he he was seen in ER and started on Valtrex He presented with worsening oral pain next dauy and persistent fever His fever i the last 24 hrs trended down He feels much better Denies any other symptoms, no nausae/vomiting, no diarrhea, no disuria, no cough , no SOB CXR is negative Denies sick contacts No travel Pets - dogs No farm animal exposure no insect exposure Review of Systems Constitutional: COMPLAINS OF: Fever Integumentary: COMPLAINS OF: Rash Except as stated in HPI: all other systems reviewed are Neg Past Family Social History Allergies: Coded Allergies: No Known Allergies (Verified Allergy, Unknown, 12/09/16) Past Medical History OA Hypertension Hyperlipidemia GERD Hiatal hernia OPAL CAD status post CABG x 3 2008 Past Surgical History Past Surgical History CABG x 3 Vasectomy L spine laminectomy Active Ordered Medications Medications where reviewed in EMR Antibiotics Include: valtrex Family History reviewed non contributory Social History Remote Tobacco. No ETOH. No Illicit Drugs. Physical Exam Vital Signs Vital Signs Date Time Temp Pulse Resp B/P (MAP) Pulse Ox O2 Delivery O2 Flow Rate FiO2 12/11/16 13:40 99.6 122 123/75 (91) 12/11/16 12:26 100.8 121 25 175/110 (131) 97 12/11/16 08:00 98.2 83 20 157/79 (105) 96 12/11/16 05:41 101.9 91 20 150/86 (107) 98 12/11/16 02:00 99.1 12/11/16 01:06 101.3 86 20 135/77 (96) 95 12/10/16 22:23 Room Air 12/10/16 22:23 99.7 12/10/16 21:23 Room Air 12/10/16 20:00 101.0 92 18 146/70 (95) 95 12/10/16 20:00 Room Air 12/10/16 18:39 103.0 93 18 167/76 (106) 96 Physical Exam CONSTITUTIONAL/GENERAL: This is an adequately nourished patient, in no apparent distress. TUBES/LINES/DRAINS: SKIN: No jaundice, lesions. Ecchymoses on upper extremities. No wounds seen anteriorly. Skin temperature appropriate. Not diaphoretic. Disseminated rash with multiple elements, including macules, papules and pustules involving hands, Large lesion on R knee HEAD: Atraumatic. Normocephalic. EYES: Pupils equal and round and reactive. Extraocular motions intact. No scleral icterus. No injection or drainage. Fundi not examined. ENT: Hearing grossly normal. Nose without bleeding or purulent drainage. Multiple shallow ulcerative lesions involving toung, b/l buccal area and inner lips NECK: Trachea midline. Supple, nontender. CARDIOVASCULAR: Regular rate and rhythm without murmurs, gallops, or rubs. No JVD. Peripheral pulses symmetric. RESPIRATORY/CHEST: Symmetric, unlabored respirations. Clear to auscultation. Breath sounds equal bilaterally. No wheezes, rales, or rhonchi. GASTROINTESTINAL: Abdomen soft, non-tender, nondistended. No hepato-splenomegaly , or palpable masses. No guarding. Bowel sounds present. GENITOURINARY: Without palpable bladder distension. MUSCULOSKELETAL: Extremities without clubbing, cyanosis, or edema. No joint tenderness or effusion noted. No calf tenderness. No mottling or clubbing. 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 NEUROLOGICAL: Awake and alert. Motor and sensory grossly within normal limits. Follows commands. Clear speech. Moves all extremities. PSYCHIATRIC: No obvious anxiety/depression. no apparent hallucinations or other psychotic thought process. Laboratory Laboratory Tests Test 12/10/16 17:20 White Blood Count 7.2 Red Blood Count 4.80 Hemoglobin 14.7 Hematocrit 43.2 Mean Corpuscular Volume 90.0 Mean Corpuscular Hemoglobin 30.6 Mean Corpuscular Hemoglobin Concent 34.0 Red Cell Distribution Width 14.8 Platelet Count 164 Mean Platelet Volume 7.6 Neutrophils (%) (Auto) 82.7 Lymphocytes (%) (Auto) 10.1 Monocytes (%) (Auto) 6.3 Eosinophils (%) (Auto) 0.2 Basophils (%) (Auto) 0.7 Neutrophils # (Auto) 5.9 Lymphocytes # (Auto) 0.7 Monocytes # (Auto) 0.5 Eosinophils # (Auto) 0.0 Basophils # (Auto) 0.0 CBC Comment DIFF FINAL Differential Comment Blood Urea Nitrogen 8 Creatinine 0.90 Random Glucose 90 Calcium Level 7.9 Sodium Level 135 Potassium Level 3.6 Chloride Level 102 Carbon Dioxide Level 22.6 Anion Gap 10 Estimat Glomerular Filtration Rate 84 Date/Time Source Procedure Growth Status 12/09/16 15:50 Blood Peripheral Aerobic Blood Culture - Preliminary NO GROWTH IN 2 DAYS Resulted 12/09/16 15:50 Blood Peripheral Anaerobic Blood Culture - Preliminary NO GROWTH IN 2 DAYS Resulted Result Diagram: 12/10/16 1720 12/10/16 1720 Imaging Last Impressions Chest X-Ray 12/09/16 1513 Signed Impressions: Service Date/Time: Friday, December 09, 2016 15:57 - CONCLUSION: 1. No acute cardiopulmonary disease. 2. Minimal discoid atelectasis within the right midlung field. Alfonso Eagle MD Assessment and Plan Assessment and Plan Febrile illness with exanthea and enathema, most likely viral disease consider hand-foot- and mouth disease Doubt chicken pox due to atrypical presentation (non pruritic lesions, relatevely benighn course in an elderly pt ) and host's age; Pt mproved clinically and is probably will be eligible to dc if remains afebrile x 24 hrs - cont valtrex for now - chk RPR - fu varicella serologies and blood clx Discussed Condition With Dr Amaral spouse, pt Dolores Wallace MD Dec 11, 2016 15:30
[2016-12-11] MEDS: ENOXAPARIN SODIUM 40 MG/0.4 ML SYRINGE SQ SCH (17:39)
[2016-12-12] VITALS (7 sets, daily range): BP systolic 131–180; BP diastolic 72–92; PULSE 93–105; RESP 17–20; TEMP 98.9–102.9; O2SAT 94–99
[2016-12-12] MEDS: ACETAMINOPHEN 325 MG TAB PO PRN ×2 (01:16→16:56)
[2016-12-12] MEDS: ACETAMINOPHEN/HYDROcodone 325 MG/5 MG TAB PO PRN ×2 (03:15→10:52)
[2016-12-12] MEDS: SODIUM CHLOR 0.9% 1000 ML INJ 1,000 ML IV SCH ×2 (05:52→16:57)
[2016-12-12] MEDS: valACYclovir HCL 500 MG TAB PO SCH ×3 (05:52→21:13)
--- NOTE | 2016-12-12 07:57 | HHI.PR ---
Subjective Remarks f/u; fever/rash in no acute distress. still febrile; Tmax 102.8. has mild sob. no itching but has some mouth sore. Objective Vitals Vital Signs Date Time Temp Pulse Resp B/P (MAP) Pulse Ox O2 Delivery O2 Flow Rate FiO2 12/12/16 03:12 99.8 93 20 131/72 (91) 94 12/12/16 00:00 102.8 102 20 155/85 (108) 97 12/11/16 20:00 Room Air 12/11/16 16:09 100.3 95 24 171/81 (111) 94 12/11/16 13:40 99.6 122 123/75 (91) 12/11/16 12:26 100.8 121 25 175/110 (131) 97 12/11/16 08:00 98.2 83 20 157/79 (105) 96 I/O 12/11/16 12/11/16 12/11/16 12/12/16 12/12/16 12/12/16 07:00 15:00 23:00 07:00 15:00 23:00 Intake Total 1240 ml 1000 ml 1240 ml Output Total 500 ml Balance 1240 ml 1000 ml 740 ml Intake Oral 240 ml 240 ml IV Total 1000 ml 1000 ml 1000 ml Output Urine Total 500 ml # Voids 4 # Bowel Movements 0 Result Diagram: 12/10/16 1720 12/10/16 1720 Imaging Last Impressions Chest X-Ray 12/09/16 1513 Signed Impressions: Service Date/Time: Friday, December 09, 2016 15:57 - CONCLUSION: 1. No acute cardiopulmonary disease. 2. Minimal discoid atelectasis within the right midlung field. Alfonso Eagle MD Objective Remarks GENERAL: This is a well-nourished, well-developed patient, in no apparent distress. CARDIOVASCULAR: Regular rate and regular rhythm without murmurs, gallops, or rubs. RESPIRATORY: Clear to auscultation. Breath sounds equal bilaterally. No wheezes , rales, or rhonchi. GASTROINTESTINAL: Abdomen soft, non-tender, nondistended. Normal, active bowel sounds MUSCULOSKELETAL: Extremities without clubbing, cyanosis, or edema. NEURO: Alert & Oriented x4 to person, place, time, situation. Moves all ext x4 skin; rash ( exanthem and enanthem) noted on the hands,legs, trunk and the mouth Medications and IVs Current Medications Sodium Chloride 1,000 ml @ 100 mls/hr Q10H IV Last administered on 12/09/16 22:50; Start 12/09/16 at 15:15; Stop 12/11/16 at 15:32; Status DC Acyclovir Sodium 500 mg/Sodium Chloride 100 ml @ 100 mls/hr ONCE ONCE IV Last administered on 12/09/16 16:34; Start 12/09/16 at 16:00; Stop 12/09/16 at 16:59; Status DC Acetaminophen (Tylenol) 650 mg ONCE ONCE PO Last administered on 12/09/16 16: 52; Start 12/09/16 at 16:45; Stop 12/09/16 at 16:46; Status DC Sodium Chloride 1,000 ml @ 100 mls/hr Q10H IV Last administered on 12/12/16 05:52; Start 12/09/16 at 16:40 Sodium Chloride (NS Flush) 2 ml UNSCH PRN IV FLUSH FLUSH AFTER USING IV ACCESS ; Start 12/09/16 at 16:45 Sodium Chloride (NS Flush) 2 ml BID IV FLUSH Last administered on 12/11/16 21: 55; Start 12/09/16 at 21:00 Acetaminophen (Tylenol) 650 mg Q4H PRN PO TEMP > 100.4 Last administered on 01:16; Start 12/09/16 at 16:45 Ondansetron HCl (Zofran Inj) 4 mg Q6H PRN IVP NAUSEA OR VOMITING; Start at 16:45 Enoxaparin Sodium (Lovenox Inj) 40 mg Q24H SQ Last administered on 12/11/16 17 :39; Start 12/09/16 at 17:00 Naloxone HCl (Narcan Inj) 0.4 mg UNSCH PRN IV PUSH SEE LABEL COMMENTS; Start 12/09/16 at 16:45 Senna/Docusate Sodium (Ambreen-Colace) 1 tab BID PO Last administered on 21:54; Start 12/09/16 at 21:00 Magnesium Hydroxide (Milk Of Magnesia Liq) 30 ml Q12H PRN PO Mild constipation ; Start 12/09/16 at 16:45 Sennosides (Senokot) 17.2 mg Q12H PRN PO Moderate constipation; Start 12/09/16 at 16:45 Bisacodyl (Dulcolax Supp) 10 mg DAILY PRN RECTAL SEVERE CONSITIPATION; Start 12/09/16 at 16:45 Lactulose (Lactulose Liq) 30 ml DAILY PRN PO SEVERE CONSITIPATION; Start at 16:45 Diphenhydramine HCl (Benadryl) 25 mg Q6H PRN PO RASH Last administered on 05:47; Start 12/09/16 at 16:45 Valacyclovir HCl (Valtrex) 1,000 mg Q8HR PO Last administered on 12/12/16 05: 52; Start 12/09/16 at 17:15 Acetaminophen/ Hydrocodone Bitart ([place] 5-325 Mg) 1 tab Q4H PRN PO PAIN SCALE 1 TO 5 Last administered on 12/12/16 03:15; Start 12/09/16 at 17:15 Morphine Sulfate (Morphine Inj) 2 mg Q4H PRN IM PAIN SCALE 6 TO 10; Start 12/09 at 17:15 Lisinopril (Prinivil) 20 mg DAILY PO Last administered on 12/11/16 09:13; Start 12/10/16 at 09:00 Metoprolol Succinate (Toprol Xl) 12.5 mg DAILY PO Last administered on 09:13; Start 12/10/16 at 09:00 Multi-Ingredient Mouthwash/Gargle (Magic Mouthwash Adult Liq) 5 ml QID SWISH- SWAL Last administered on 12/10/16 22:21; Start 12/10/16 at 18:00; Stop at 15:32; Status DC A/P Assessment and Plan A/P 1. febrile illness with enanthem and exanthem; suspect hand,foot and mouth disease started on Valtrex- continue supportive care- VZV antibody pending. ID consult appreciated. 2. OA by history 3. Hypertension controlled continue home medicines 4. Hyperlipidemia - resume statin upon discharge. 5. CAD status post CABG x 3 in 2008 DVT prophylaxis with Lovenox Discharge Planning still febrile- not ready for discharge yet. Rosalio Brooke MD Dec 12, 2016 07:57
[2016-12-12] MEDS: SODIUM CHLORIDE 0.9% FLUSH 10 ML FLUSH IV FLUSH SCH ×2 (09:00→21:05)
[2016-12-12] MEDS: METOPROLOL SUCCINATE 25 MG EXTENDED RELEASE TAB PO SCH (09:06)
[2016-12-12] MEDS: DOCUSATE SODIUM 50 MG/SENNA 8.6 MG TAB PO SCH ×2 (09:06→21:00)
[2016-12-12] MEDS: LISINOPRIL 20 MG TAB PO SCH (09:06)
[2016-12-12] MEDS: ENOXAPARIN SODIUM 40 MG/0.4 ML SYRINGE SQ SCH (18:09)
[2016-12-12 21:18] LABS: AUTOMATED NEUTROPHIL # 5.3 TH/MM3 (1.8-7.7); BASOPHIL % 0.5 % (0.0-2.0); EOSINOPHIL % 0.5 % (0.0-4.0); HEMATOCRIT 41.8 % (39.0-51.0); HEMO FLAGS DIFF FINAL; LYMPH % 12.4 % (9.0-44.0); LYMPHOCYTE # 0.9 TH/MM3 (1.0-4.8); MEAN CELL VOLUME 88.4 FL (80.0-100.0); MEAN CORPUSCULAR HEMOGLOBIN 30.2 PG (27.0-34.0); MEAN CORPUSCULAR HGB CONC 34.2 % (32.0-36.0); MONO % 9.3 % (0.0-8.0); NEUT % 77.3 % (16.0-70.0); PLATELET COUNT 184 TH/MM3 (150-450); RED BLOOD COUNT 4.73 MIL/MM3 (4.50-5.90); RED CELL DISTRIBUTION WIDTH 14.9 % (11.6-17.2); WHITE BLOOD COUNT 6.9 TH/MM3 (4.0-11.0)
[2016-12-12 21:43] LABS: BICARBONATE 23.9 MEQ/L (21.0-32.0); POTASSIUM 3.2 MEQ/L (3.5-5.1)
[2016-12-13] VITALS: BP 150/73; PULSE 91; RESP 20; TEMP 98.6; O2SAT 94
[2016-12-13] MEDS: SODIUM CHLOR 0.9% 1000 ML INJ 1,000 ML IV SCH ×3 (02:07→21:27)
[2016-12-13] MEDS: ACETAMINOPHEN/HYDROcodone 325 MG/5 MG TAB PO PRN ×3 (02:11→21:29)
[2016-12-13 04:00] VITALS: BP 147/72; PULSE 89; RESP 20; TEMP 99.3; O2SAT 94
[2016-12-13] MEDS: valACYclovir HCL 500 MG TAB PO SCH ×2 (06:09→14:19)
[2016-12-13 08:00] VITALS: BP 166/90; PULSE 89; RESP 20; TEMP 98.1; O2SAT 98
[2016-12-13] MEDS: SODIUM CHLORIDE 0.9% FLUSH 10 ML FLUSH IV FLUSH SCH ×2 (09:00→21:00)
--- NOTE | 2016-12-13 09:27 | HHI.PR ---
Subjective Remarks in no acute distress. feels slightly better today. no fever spike since last night. Objective Vitals Vital Signs Date Time Temp Pulse Resp B/P (MAP) Pulse Ox O2 Delivery O2 Flow Rate FiO2 12/13/16 08:00 98.1 89 20 166/90 (115) 98 12/13/16 04:00 99.3 89 20 147/72 (97) 94 12/13/16 00:00 98.6 91 20 150/73 (98) 94 12/12/16 20:15 Room Air 12/12/16 20:00 98.9 99 20 180/92 (121) 97 12/12/16 18:07 99.5 12/12/16 16:00 102.9 97 18 152/83 (106) 99 12/12/16 12:00 100.7 105 18 155/78 (103) 96 I/O 12/12/16 12/12/16 12/12/16 12/13/16 12/13/16 12/13/16 07:00 15:00 23:00 07:00 15:00 23:00 Intake Total 1240 ml 1960 ml 1640 ml Output Total 500 ml 400 ml Balance 740 ml 1960 ml 1240 ml Intake Oral 240 ml 960 ml 640 ml IV Total 1000 ml 1000 ml 1000 ml Output Urine Total 500 ml 400 ml # Voids 2 5 # Bowel Movements 0 2 Result Diagram: 12/12/16205112/12/162051 Objective Remarks GENERAL: This is a well-nourished, well-developed patient, in no apparent distress. CARDIOVASCULAR: Regular rate and regular rhythm without murmurs, gallops, or rubs. RESPIRATORY: Clear to auscultation. Breath sounds equal bilaterally. No wheezes , rales, or rhonchi. GASTROINTESTINAL: Abdomen soft, non-tender, nondistended. Normal, active bowel sounds MUSCULOSKELETAL: Extremities without clubbing, cyanosis, or edema. NEURO: Alert & Oriented x4 to person, place, time, situation. Moves all ext x4 skin; rash ( exanthem and enanthem) noted on the hands,legs, trunk and the mouth Medications and IVs Current Medications Sodium Chloride 1,000 ml @ 100 mls/hr Q10H IV Last administered on 12/09/16t 22:50; Start 12/09/16 at 15:15; Stop 12/11/16 at 15:32; Status DC Acyclovir Sodium 500 mg/Sodium Chloride 100 ml @ 100 mls/hr ONCE ONCE IV Last administered on 12/09/16 16:34; Start 12/09/16 at 16:00; Stop 12/09/16 at 16:59; Status DC Acetaminophen (Tylenol) 650 mg ONCE ONCE PO Last administered on 12/09/16 16: 52; Start 12/09/16 at 16:45; Stop 12/09/16 at 16:46; Status DC Sodium Chloride 1,000 ml @ 100 mls/hr Q10H IV Last administered on 12/13/16 02:07; Start 12/09/16 at 16:40 Sodium Chloride (NS Flush) 2 ml UNSCH PRN IV FLUSH FLUSH AFTER USING IV ACCESS ; Start 12/09/16 at 16:45 Sodium Chloride (NS Flush) 2 ml BID IV FLUSH Last administered on 12/12/16 21: 05; Start 12/09/16 at 21:00 Acetaminophen (Tylenol) 650 mg Q4H PRN PO TEMP > 100.4 Last administered on 16:56; Start 12/09/16 at 16:45 Ondansetron HCl (Zofran Inj) 4 mg Q6H PRN IVP NAUSEA OR VOMITING; Start at 16:45 Enoxaparin Sodium (Lovenox Inj) 40 mg Q24H SQ Last administered on 12/12/16 18 :09; Start 12/09/16 at 17:00 Naloxone HCl (Narcan Inj) 0.4 mg UNSCH PRN IV PUSH SEE LABEL COMMENTS; Start 12/09/16 at 16:45 Senna/Docusate Sodium (Ambreen-Colace) 1 tab BID PO Last administered on 09:06; Start 12/09/16 at 21:00 Magnesium Hydroxide (Milk Of Magnesia Liq) 30 ml Q12H PRN PO Mild constipation ; Start 12/09/16 at 16:45 Sennosides (Senokot) 17.2 mg Q12H PRN PO Moderate constipation; Start 12/09/16 at 16:45 Bisacodyl (Dulcolax Supp) 10 mg DAILY PRN RECTAL SEVERE CONSITIPATION; Start 12/09/16 at 16:45 Lactulose (Lactulose Liq) 30 ml DAILY PRN PO SEVERE CONSITIPATION; Start at 16:45 Diphenhydramine HCl (Benadryl) 25 mg Q6H PRN PO RASH Last administered on 05:47; Start 12/09/16 at 16:45 Valacyclovir HCl (Valtrex) 1,000 mg Q8HR PO Last administered on 12/13/16 06: 09; Start 12/09/16 at 17:15 Acetaminophen/ Hydrocodone Bitart ([place] 5-325 Mg) 1 tab Q4H PRN PO PAIN SCALE 1 TO 5 Last administered on 12/13/16 06:11; Start 12/09/16 at 17:15 Morphine Sulfate (Morphine Inj) 2 mg Q4H PRN IM PAIN SCALE 6 TO 10; Start 12/09 at 17:15 Lisinopril (Prinivil) 20 mg DAILY PO Last administered on 12/12/16 09:06; Start 12/10/16 at 09:00 Metoprolol Succinate (Toprol Xl) 12.5 mg DAILY PO Last administered on 09:06; Start 12/10/16 at 09:00 Multi-Ingredient Mouthwash/Gargle (Magic Mouthwash Adult Liq) 5 ml QID SWISH- SWAL Last administered on 12/10/16 22:21; Start 12/10/16 at 18:00; Stop at 15:32; Status DC A/P Assessment and Plan A/P 1. febrile illness with enanthem and exanthem; suspect hand,foot and mouth disease started on Valtrex- continue supportive care- VZV antibody/ HIV testing pending. blood cultures negative so far. ID consult appreciated. 2. OA by history 3. Hypertension controlled continue home medicines 4. Hyperlipidemia - resume statin upon discharge. 5. CAD status post CABG x 3 in 2008 DVT prophylaxis with Lovenox Discharge Planning still febrile- not ready for discharge yet. Rosalio Brooke MD Dec 13, 2016 09:27
[2016-12-13] MEDS: DOCUSATE SODIUM 50 MG/SENNA 8.6 MG TAB PO SCH ×2 (09:35→21:00)
[2016-12-13] MEDS: LISINOPRIL 20 MG TAB PO SCH (09:35)
[2016-12-13] MEDS: METOPROLOL SUCCINATE 25 MG EXTENDED RELEASE TAB PO SCH (09:36)
[2016-12-13 10:35] LABS: VZV RESULT Negative (Negative); VZV SPECIMEN SOURCE INSIDE MOUTH LESION
[2016-12-13 12:00] VITALS: BP 152/77; PULSE 87; RESP 20; TEMP 98.1; O2SAT 99
[2016-12-13 16:00] VITALS: BP 160/80; PULSE 92; RESP 20; TEMP 98.1; O2SAT 93
--- NOTE | 2016-12-13 16:52 | HHI.IDPN ---
Subjective Subjective Remarks Delayed entry seen around 1800 Pt was ready to be d/c'd when high grade fever was noted New fever 102.8 F No headache - resolved after his valtrex was stopped no new c/o Antibiotics none Allergies: Coded Allergies: No Known Allergies (Verified Allergy, Unknown, 12/09/16) Objective . Vital Signs Date Time Temp Pulse Resp B/P (MAP) Pulse Ox O2 Delivery O2 Flow Rate FiO2 12/13/16 12:00 98.1 87 20 152/77 (102) 99 12/13/16 08:00 98.1 89 20 166/90 (115) 98 12/13/16 04:00 99.3 89 20 147/72 (97) 94 12/13/16 00:00 98.6 91 20 150/73 (98) 94 12/12/16 20:15 Room Air 12/12/16 20:00 98.9 99 20 180/92 (121) 97 12/12/16 18:07 99.5 12/13/16 12/13/16 12/14/16 15:00 23:00 07:00 Intake Total 1000 ml Balance 1000 ml IV Total 1000 ml . Laboratory Tests Test 12/12/16 20:52 White Blood Count 6.9 TH/MM3 Red Blood Count 4.73 MIL/MM3 Hemoglobin 14.3 GM/DL Hematocrit 41.8 % Mean Corpuscular Volume 88.4 FL Mean Corpuscular Hemoglobin 30.2 PG Mean Corpuscular Hemoglobin Concent 34.2 % Red Cell Distribution Width 14.9 % Platelet Count 184 TH/MM3 Mean Platelet Volume 7.7 FL Neutrophils (%) (Auto) 77.3 % Lymphocytes (%) (Auto) 12.4 % Monocytes (%) (Auto) 9.3 % Eosinophils (%) (Auto) 0.5 % Basophils (%) (Auto) 0.5 % Neutrophils # (Auto) 5.3 TH/MM3 Lymphocytes # (Auto) 0.9 TH/MM3 Monocytes # (Auto) 0.6 TH/MM3 Eosinophils # (Auto) 0.0 TH/MM3 Basophils # (Auto) 0.0 TH/MM3 CBC Comment DIFF FINAL Differential Comment Laboratory Tests Test 12/12/16 20:52 Blood Urea Nitrogen 7 MG/DL Creatinine 0.80 MG/DL Random Glucose 99 MG/DL Calcium Level 8.1 MG/DL Sodium Level 136 MEQ/L Potassium Level 3.2 MEQ/L Chloride Level 103 MEQ/L Carbon Dioxide Level 23.9 MEQ/L Anion Gap 9 MEQ/L Estimat Glomerular Filtration Rate 96 ML/MIN Imaging Last Impressions Chest X-Ray 12/09/16 1513 Signed Impressions: Service Date/Time: Friday, December 09, 2016 15:57 - CONCLUSION: 1. No acute cardiopulmonary disease. 2. Minimal discoid atelectasis within the right midlung field. Alfonso Eagle MD Physical Exam CONSTITUTIONAL/GENERAL: This is an adequately nourished patient, in no apparent distress. TUBES/LINES/DRAINS: SKIN: No jaundice, lesions. Ecchymoses on upper extremities. No wounds seen anteriorly. Skin temperature appropriate. Not diaphoretic. Disseminated rash with multiple elements, including macules, papules and pustules involving hands, evolving - some lesions are resolved Large lesion on R knee Hand lesions - drying out ? new scattered lesions on feet EYES: Pupils equal and round and reactive. Extraocular motions intact. No scleral icterus. No injection or drainage. Fundi not examined. ENT: Hearing grossly normal. Nose without bleeding or purulent drainage. Multiple shallow ulcerative lesions involving toung, b/l buccal area and inner lips NECK: Trachea midline. Supple, nontender. CARDIOVASCULAR: Regular rate and rhythm without murmurs, gallops, or rubs. No JVD. Peripheral pulses symmetric. RESPIRATORY/CHEST: Symmetric, unlabored respirations. Clear to auscultation. Breath sounds equal bilaterally. No wheezes, rales, or rhonchi. GASTROINTESTINAL: Abdomen soft, non-tender, nondistended. No hepato-splenomegaly , or palpable masses. No guarding. Bowel sounds present. MUSCULOSKELETAL: Extremities without clubbing, cyanosis, or edema. No joint tenderness or effusion noted. No calf tenderness. No mottling or clubbing. 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 NEUROLOGICAL: Awake and alert. Motor and sensory grossly within normal limits. Follows commands. Clear speech. Moves all extremities. Non focal PSYCHIATRIC: calm, cooperative Assessment & Plan Remarks Assessment and Plan Febrile illness with exanthea and enathema, most likely viral disease consider hand-foot- and mouth disease neg HIV neg VZV DNA neg RPR neg HSV Doubt chicken pox due to atrypical presentation (non pruritic lesions, relatevely benighn course in an elderly pt ) and host's age; Pt mproved clinically and is probably will be eligible to dc if remains afebrile x 24 hrs New problem: headache, doubt meningitis - most likley valtrex (very frequently reported) : - resolved after valtrex stopped - hold dc - addt'l w/u ordered: CMV, bl clx, flu (negative) Discussed Condition With Dolores Cyr MD Dec 13, 2016 16:52
[2016-12-13 17:17] LABS: POTASSIUM 3.3 MEQ/L (3.5-5.1)
[2016-12-13] MEDS: ENOXAPARIN SODIUM 40 MG/0.4 ML SYRINGE SQ SCH (18:17)
[2016-12-13] MEDS ORDERED: POTASSIUM CHLORIDE 20 MEQ CONTROLLED RELEASE TAB PO ONE (18:45)
[2016-12-13 20:00] VITALS: BP 151/92; PULSE 88; RESP 19; TEMP 99.8; O2SAT 95
[2016-12-14] VITALS (8 sets, daily range): BP systolic 136–173; BP diastolic 77–100; PULSE 82–105; RESP 18–21; TEMP 97.8–102.3; O2SAT 92–97
[2016-12-14] MEDS: ACETAMINOPHEN/HYDROcodone 325 MG/5 MG TAB PO PRN ×3 (03:45→16:19)
[2016-12-14] MEDS: SODIUM CHLOR 0.9% 1000 ML INJ 1,000 ML IV SCH ×2 (07:25→16:43)
--- NOTE | 2016-12-14 08:48 | HHI.PR ---
Subjective Remarks overall feeling better. no fever spike. rash is better. no new complaints. Objective Vitals Vital Signs Date Time Temp Pulse Resp B/P (MAP) Pulse Ox O2 Delivery O2 Flow Rate FiO2 12/14/16 04:00 98.6 82 21 152/88 (109) 95 12/14/16 00:00 98.1 82 19 136/77 (96) 95 12/13/16 20:30 Room Air 12/13/16 20:00 99.8 88 19 151/92 (111) 95 12/13/16 16:00 98.1 92 20 160/80 (106) 93 12/13/16 12:00 98.1 87 20 152/77 (102) 99 I/O 12/13/16 12/13/16 12/13/16 12/14/16 12/14/16 12/14/16 07:00 15:00 23:00 07:00 15:00 23:00 Intake Total 1640 ml 1000 ml 720 ml 1210 ml Output Total 400 ml 800 ml 950 ml Balance 1240 ml 1000 ml -80 ml 260 ml Intake Oral 640 ml 720 ml 540 ml IV Total 1000 ml 1000 ml 670 ml Output Urine Total 400 ml 800 ml 950 ml # Bowel Movements 1 0 Result Diagram: 12/12/16205112/13/16 1600 Imaging Last Impressions Chest X-Ray 12/09/16 1513 Signed Impressions: Service Date/Time: Friday, December 09, 2016 15:57 - CONCLUSION: 1. No acute cardiopulmonary disease. 2. Minimal discoid atelectasis within the right midlung field. Alfonso Eagle MD Objective Remarks GENERAL: This is a well-nourished, well-developed patient, in no apparent distress. CARDIOVASCULAR: Regular rate and regular rhythm without murmurs, gallops, or rubs. RESPIRATORY: Clear to auscultation. Breath sounds equal bilaterally. No wheezes , rales, or rhonchi. GASTROINTESTINAL: Abdomen soft, non-tender, nondistended. Normal, active bowel sounds MUSCULOSKELETAL: Extremities without clubbing, cyanosis, or edema. NEURO: Alert & Oriented x4 to person, place, time, situation. Moves all ext x4 skin; rash ( exanthem and enanthem) noted on the hands,legs, trunk and the mouth Medications and IVs Current Medications Sodium Chloride 1,000 ml @ 100 mls/hr Q10H IV Last administered on 12/09/16 22:50; Start 12/09/16 at 15:15; Stop 12/11/16 at 15:32; Status DC Acyclovir Sodium 500 mg/Sodium Chloride 100 ml @ 100 mls/hr ONCE ONCE IV Last administered on 12/09/16 16:34; Start 12/09/16 at 16:00; Stop 12/09/16 at 16:59; Status DC Acetaminophen (Tylenol) 650 mg ONCE ONCE PO Last administered on 12/09/16 16: 52; Start 12/09/16 at 16:45; Stop 12/09/16 at 16:46; Status DC Sodium Chloride 1,000 ml @ 100 mls/hr Q10H IV Last administered on 12/14/16 07:25; Start 12/09/16 at 16:40 Sodium Chloride (NS Flush) 2 ml UNSCH PRN IV FLUSH FLUSH AFTER USING IV ACCESS ; Start 12/09/16 at 16:45 Sodium Chloride (NS Flush) 2 ml BID IV FLUSH Last administered on 12/12/16 21: 05; Start 12/09/16 at 21:00 Acetaminophen (Tylenol) 650 mg Q4H PRN PO TEMP > 100.4 Last administered on 16:56; Start 12/09/16 at 16:45 Ondansetron HCl (Zofran Inj) 4 mg Q6H PRN IVP NAUSEA OR VOMITING; Start at 16:45 Enoxaparin Sodium (Lovenox Inj) 40 mg Q24H SQ Last administered on 12/13/16 18 :17; Start 12/09/16 at 17:00 Naloxone HCl (Narcan Inj) 0.4 mg UNSCH PRN IV PUSH SEE LABEL COMMENTS; Start 12/09/16 at 16:45 Senna/Docusate Sodium (Ambreen-Colace) 1 tab BID PO Last administered on 09:35; Start 12/09/16 at 21:00 Magnesium Hydroxide (Milk Of Magnesia Liq) 30 ml Q12H PRN PO Mild constipation ; Start 12/09/16 at 16:45 Sennosides (Senokot) 17.2 mg Q12H PRN PO Moderate constipation; Start 12/09/16 at 16:45 Bisacodyl (Dulcolax Supp) 10 mg DAILY PRN RECTAL SEVERE CONSITIPATION; Start 12/09/16 at 16:45 Lactulose (Lactulose Liq) 30 ml DAILY PRN PO SEVERE CONSITIPATION; Start at 16:45 Diphenhydramine HCl (Benadryl) 25 mg Q6H PRN PO RASH Last administered on 05:47; Start 12/09/16 at 16:45 Valacyclovir HCl (Valtrex) 1,000 mg Q8HR PO Last administered on 12/13/16 14: 19; Start 12/09/16 at 17:15; Stop 12/13/16 at 16:54; Status DC Acetaminophen/ Hydrocodone Bitart ([place] 5-325 Mg) 1 tab Q4H PRN PO PAIN SCALE 1 TO 5 Last administered on 12/14/16 03:45; Start 12/09/16 at 17:15 Morphine Sulfate (Morphine Inj) 2 mg Q4H PRN IM PAIN SCALE 6 TO 10; Start 12/09 at 17:15 Lisinopril (Prinivil) 20 mg DAILY PO Last administered on 12/13/16 09:35; Start 12/10/16 at 09:00 Metoprolol Succinate (Toprol Xl) 12.5 mg DAILY PO Last administered on 09:36; Start 12/10/16 at 09:00 Multi-Ingredient Mouthwash/Gargle (Magic Mouthwash Adult Liq) 5 ml QID SWISH- SWAL Last administered on 12/10/16 22:21; Start 12/10/16 at 18:00; Stop at 15:32; Status DC Potassium Chloride (KCl) 40 meq NOW ONCE PO Last administered on 12/13/16 18: 54; Start 12/13/16 at 18:45; Stop 12/13/16 at 18:46; Status DC A/P Assessment and Plan A/P 1. febrile illness with enanthem and exanthem; suspect hand,foot and mouth disease-overall improving. off Valtrex now- continue supportive care- VZV antibody pending/ HIV antibody negative.HSV PCR negative. blood cultures negative so far. ID consult appreciated. 2. OA by history 3. Hypertension controlled continue home medicines 4. Hyperlipidemia - resume statin upon discharge. 5. CAD status post CABG x 3 in 2008 DVT prophylaxis with Lovenox Discharge Planning possible dc home later today if ok with ID. see med list. f/u ; pcp. d/w the patient. Rosalio Brooke MD Dec 14, 2016 08:47
[2016-12-14] MEDS: DOCUSATE SODIUM 50 MG/SENNA 8.6 MG TAB PO SCH ×2 (09:15→20:47)
[2016-12-14] MEDS: LISINOPRIL 20 MG TAB PO SCH (09:15)
[2016-12-14] MEDS: SODIUM CHLORIDE 0.9% FLUSH 10 ML FLUSH IV FLUSH SCH ×2 (09:15→20:47)
[2016-12-14] MEDS: METOPROLOL SUCCINATE 25 MG EXTENDED RELEASE TAB PO SCH (09:15)
--- NOTE | 2016-12-14 13:06 | HHI.DS ---
Discharge Summary Admission Date Dec 09, 2016 at 15:57 Discharge Date: Dec 14, 2016 Admitting Diagnosis VARICELLA (1) Rash ICD Code: R21 - Rash and other nonspecific skin eruption Diagnosis: Principal Procedures none Brief History - From Admission This is a pleasant 66 y/o male who came to ER with Fever and rash, also complaint of sore throat he was seen in emergency room yesterday with the same symptomatology was given supportive care but today is evident his compromise, the rash has worsened now multiple lesions inside his mouth, also some rash on his body and extremities, has persistent fever of 101F the patient has OA, Hyperlipidemia, GERD, Hypertension, OPAL. Patient seen in the presence of his he has painful lesions in his mouth and in his back, neck, chest and extremities, due to his actual oral compromise received Acyclovir IV will continue management with antiviral therapy, CBC/BMP: 12/12/16205112/13/16 1600 Significant Findings Laboratory Tests Test 12/11/16 18:11 12/12/16 17:30 12/12/16 20:52 12/13/16 16:00 Neutrophils (%) (Auto) 77.3 % (16.0-70.0) Monocytes (%) (Auto) 9.3 % (0.0-8.0) Lymphocytes # (Auto) 0.9 TH/MM3 (1.0-4.8) Calcium Level 8.1 MG/DL (8.5-10.1) Potassium Level 3.2 MEQ/L (3.5-5.1) 3.3 MEQ/L (3.5-5.1) C-Reactive Protein 18.40 MG/DL (0.00-0.30) Test 12/14/16 11:04 Imaging Last Impressions Chest X-Ray 12/09/16 1513 Signed Impressions: Service Date/Time: Friday, December 09, 2016 15:57 - CONCLUSION: 1. No acute cardiopulmonary disease. 2. Minimal discoid atelectasis within the right midlung field. Alfonso Eagle MD PE at Discharge GENERAL: This is a well-nourished, well-developed patient, in no apparent distress. CARDIOVASCULAR: Regular rate and regular rhythm without murmurs, gallops, or rubs. RESPIRATORY: Clear to auscultation. Breath sounds equal bilaterally. No wheezes , rales, or rhonchi. GASTROINTESTINAL: Abdomen soft, non-tender, nondistended. Normal, active bowel sounds MUSCULOSKELETAL: Extremities without clubbing, cyanosis, or edema. NEURO: Alert & Oriented x4 to person, place, time, situation. Moves all ext x4 skin; rash ( exanthem and enanthem) noted on the hands,legs, trunk and the mouth Hospital Course 1. febrile illness with enanthem and exanthem; suspect hand,foot and mouth disease-overall improving. off Valtrex now- continue supportive care- VZV antibody pending/ HIV antibody negative.HSV PCR negative. blood cultures negative so far. ID consult appreciated. 2. OA by history 3. Hypertension controlled continue home medicines 4. Hyperlipidemia - resume statin upon discharge. 5. CAD status post CABG x 3 in 2008 Pt Condition on Discharge: Fair Discharge Disposition: Discharge Home Discharge Time: <= 30 minutes Discharge Instructions DIET: Follow Instructions for: Heart Healthy Diet Activities you can perform: Regular-No Restrictions Follow up Referrals: PCP Follow-up Continued Medications: Lisinopril (Lisinopril) 20 Mg Tab 20 MG PO DAILY, #30 TAB 0 Refills Metoprolol Tartrate (Metoprolol Tartrate) 25 Mg Tab Unknown Dose PO DAILY, #30 TAB 0 Refills Simvastatin (Simvastatin) 5 Mg Tab Unknown Dose PO DAILY for Cholesterol Management, #30 TAB 0 Refills Rosalio Brooke MD Dec 14, 2016 13:06
[2016-12-14] MEDS: ACETAMINOPHEN 325 MG TAB PO PRN (16:20)
[2016-12-14] MEDS: ENOXAPARIN SODIUM 40 MG/0.4 ML SYRINGE SQ SCH (16:22)
--- NOTE | 2016-12-14 19:28 | HHI.PR ---
Addendum to Inpatient Note Additional Information seen around 1800 - full note to folmaykel New fever 102.8 F No headach no new c/o - hold dc - addt'l w/u ordered Dolores Andrade MD Dec 14, 2016 19:28
[2016-12-15] VITALS (7 sets, daily range): BP systolic 155–174; BP diastolic 82–92; PULSE 86–109; RESP 18–20; TEMP 97.8–100.8; O2SAT 95–97
[2016-12-15] MEDS: ACETAMINOPHEN/HYDROcodone 325 MG/5 MG TAB PO PRN ×2 (00:11→04:16)
[2016-12-15] MEDS: SODIUM CHLOR 0.9% 1000 ML INJ 1,000 ML IV SCH ×3 (04:20→21:55)
[2016-12-15 08:27] LABS: BASOPHIL # 0.1 TH/MM3 (0-0.2); BASOPHIL % 0.6 % (0.0-2.0); EOSINOPHIL # 0.3 TH/MM3 (0-0.4); EOSINOPHIL % 3.4 % (0.0-4.0); HEMATOCRIT 39.4 % (39.0-51.0); HEMO FLAGS DIFF FINAL; LYMPH % 11.3 % (9.0-44.0); MEAN CELL VOLUME 88.8 FL (80.0-100.0); MEAN CORPUSCULAR HEMOGLOBIN 30.7 PG (27.0-34.0); MEAN CORPUSCULAR HGB CONC 34.6 % (32.0-36.0); MONO % 9.1 % (0.0-8.0); NEUT % 75.6 % (16.0-70.0); PLATELET COUNT 295 TH/MM3 (150-450); RED BLOOD COUNT 4.44 MIL/MM3 (4.50-5.90); WHITE BLOOD COUNT 9.2 TH/MM3 (4.0-11.0)
[2016-12-15 08:35] LABS: ALT (GPT) 55 U/L (12-78); ANION GAP 11 MEQ/L (5-15); AST (GOT) 35 U/L (15-37); BICARBONATE 19.7 MEQ/L (21.0-32.0); BLOOD UREA NITROGEN 9 MG/DL (7-18); CHLORIDE 105 MEQ/L (98-107); GLOMERULAR FILTRATION RATE 125 ML/MIN (>89); POTASSIUM 3.4 MEQ/L (3.5-5.1); SODIUM (NA) 136 MEQ/L (136-145)
[2016-12-15 08:37] LABS: ALKALINE PHOSPHATASE 125 U/L (45-117); TOTAL BILIRUBIN ADULT 0.7 MG/DL (0.2-1.0)
[2016-12-15] MEDS: LISINOPRIL 20 MG TAB PO SCH (08:38)
[2016-12-15] MEDS: METOPROLOL SUCCINATE 25 MG EXTENDED RELEASE TAB PO SCH (08:38)
[2016-12-15] MEDS: DOCUSATE SODIUM 50 MG/SENNA 8.6 MG TAB PO SCH ×3 (08:38→21:55)
[2016-12-15] MEDS: SODIUM CHLORIDE 0.9% FLUSH 10 ML FLUSH IV FLUSH SCH ×2 (08:39→21:00)
--- NOTE | 2016-12-15 09:09 | HHI.PR ---
Subjective Remarks in no acute distress. discharge planning on hold due to recurrent fever; T max 102. however the rash seems to be improving. d/w the RN. Objective Vitals Vital Signs Date Time Temp Pulse Resp B/P (MAP) Pulse Ox O2 Delivery O2 Flow Rate FiO2 12/15/16 04:00 98.7 92 20 168/82 (110) 95 12/15/16 00:00 100.1 86 18 167/88 (114) 97 12/14/16 20:00 98.7 88 20 165/84 (111) 97 12/14/16 18:25 98.4 89 151/84 (106) 12/14/16 16:15 Room Air 12/14/16 16:00 99.9 104 18 173/100 (124) 92 12/14/16 15:32 102.3 12/14/16 12:00 97.8 105 18 151/81 (104) 94 12/14/16 09:10 Room Air I/O 12/14/16 12/14/16 12/14/16 12/15/16 12/15/16 12/15/16 07:00 15:00 23:00 07:00 15:00 23:00 Intake Total 1210 ml 960 ml 1440 ml Output Total 950 ml Balance 260 ml 960 ml 1440 ml Intake Oral 540 ml 960 ml 720 ml IV Total 670 ml 720 ml Output Urine Total 950 ml # Voids 3 3 # Bowel Movements 0 1 Result Diagram: 12/15/16 0620 12/15/16 0620 Imaging Last Impressions Chest X-Ray 12/09/16 1513 Signed Impressions: Service Date/Time: Friday, December 09, 2016 15:57 - CONCLUSION: 1. No acute cardiopulmonary disease. 2. Minimal discoid atelectasis within the right midlung field. Alfonso Eagle MD Objective Remarks GENERAL: This is a well-nourished, well-developed patient, in no apparent distress. CARDIOVASCULAR: Regular rate and regular rhythm without murmurs, gallops, or rubs. RESPIRATORY: Clear to auscultation. Breath sounds equal bilaterally. No wheezes , rales, or rhonchi. GASTROINTESTINAL: Abdomen soft, non-tender, nondistended. Normal, active bowel sounds MUSCULOSKELETAL: Extremities without clubbing, cyanosis, or edema. NEURO: Alert & Oriented x4 to person, place, time, situation. Moves all ext x4 skin; rash ( exanthem and enanthem) noted on the hands,legs, trunk and the mouth Procedures none Medications and IVs Current Medications Sodium Chloride 1,000 ml @ 100 mls/hr Q10H IV Last administered on 12/09/16 22:50; Start 12/09/16 at 15:15; Stop 12/11/16 at 15:32; Status DC Acyclovir Sodium 500 mg/Sodium Chloride 100 ml @ 100 mls/hr ONCE ONCE IV Last administered on 12/09/16 16:34; Start 12/09/16 at 16:00; Stop 12/09/16 at 16:59; Status DC Acetaminophen (Tylenol) 650 mg ONCE ONCE PO Last administered on 12/09/16 16: 52; Start 12/09/16 at 16:45; Stop 12/09/16 at 16:46; Status DC Sodium Chloride 1,000 ml @ 100 mls/hr Q10H IV Last administered on 12/15/16 04:20; Start 12/09/16 at 16:40 Sodium Chloride (NS Flush) 2 ml UNSCH PRN IV FLUSH FLUSH AFTER USING IV ACCESS ; Start 12/09/16 at 16:45 Sodium Chloride (NS Flush) 2 ml BID IV FLUSH Last administered on 12/14/16 09: 15; Start 12/09/16 at 21:00 Acetaminophen (Tylenol) 650 mg Q4H PRN PO TEMP > 100.4 Last administered on 16:20; Start 12/09/16 at 16:45 Ondansetron HCl (Zofran Inj) 4 mg Q6H PRN IVP NAUSEA OR VOMITING; Start at 16:45 Enoxaparin Sodium (Lovenox Inj) 40 mg Q24H SQ Last administered on 12/14/16 16 :22; Start 12/09/16 at 17:00 Naloxone HCl (Narcan Inj) 0.4 mg UNSCH PRN IV PUSH SEE LABEL COMMENTS; Start 12/09/16 at 16:45 Senna/Docusate Sodium (Ambreen-Colace) 1 tab BID PO Last administered on 20:47; Start 12/09/16 at 21:00 Magnesium Hydroxide (Milk Of Magnesia Liq) 30 ml Q12H PRN PO Mild constipation ; Start 12/09/16 at 16:45 Sennosides (Senokot) 17.2 mg Q12H PRN PO Moderate constipation; Start 12/09/16 at 16:45 Bisacodyl (Dulcolax Supp) 10 mg DAILY PRN RECTAL SEVERE CONSITIPATION; Start 12/09/16 at 16:45 Lactulose (Lactulose Liq) 30 ml DAILY PRN PO SEVERE CONSITIPATION; Start at 16:45 Diphenhydramine HCl (Benadryl) 25 mg Q6H PRN PO RASH Last administered on 05:47; Start 12/09/16 at 16:45 Valacyclovir HCl (Valtrex) 1,000 mg Q8HR PO Last administered on 12/13/16 14: 19; Start 12/09/16 at 17:15; Stop 12/13/16 at 16:54; Status DC Acetaminophen/ Hydrocodone Bitart ([place] 5-325 Mg) 1 tab Q4H PRN PO PAIN SCALE 1 TO 5 Last administered on 12/15/16 04:16; Start 12/09/16 at 17:15 Morphine Sulfate (Morphine Inj) 2 mg Q4H PRN IM PAIN SCALE 6 TO 10; Start 12/09 at 17:15 Lisinopril (Prinivil) 20 mg DAILY PO Last administered on 12/14/16 09:15; Start 12/10/16 at 09:00 Metoprolol Succinate (Toprol Xl) 12.5 mg DAILY PO Last administered on 09:15; Start 12/10/16 at 09:00 Multi-Ingredient Mouthwash/Gargle (Magic Mouthwash Adult Liq) 5 ml QID SWISH- SWAL Last administered on 12/10/16 22:21; Start 12/10/16 at 18:00; Stop at 15:32; Status DC Potassium Chloride (KCl) 40 meq NOW ONCE PO Last administered on 12/13/16 18: 54; Start 12/13/16 at 18:45; Stop 12/13/16 at 18:46; Status DC A/P Problem List: (1) Rash ICD Code: R21 - Rash and other nonspecific skin eruption Assessment and Plan A/P 1. febrile illness with enanthem and exanthem; suspect hand,foot and mouth disease- now with recurrent fever- off Valtrex now- continue supportive care-HIV antibody negative.HSV PCR negative. blood cultures repeated and pending. ID follow-up appreciated. 2. OA by history 3. Hypertension controlled continue home medicines- clonidine as needed. 4. Hyperlipidemia - resumed statin upon discharge. 5. CAD status post CABG x 3 in 2008 DVT prophylaxis with Lovenox Discharge Planning with recurrent fever. work-up in progress. not ready for discharge yet. Rosalio Brooke MD Dec 15, 2016 09:09
[2016-12-15] MEDS ORDERED: cloNIDine HCL 0.1 MG TAB PO PRN (10:00)
[2016-12-15] MEDS ORDERED: POTASSIUM CHLORIDE 20 MEQ CONTROLLED RELEASE TAB PO ONE (10:00)
--- NOTE | 2016-12-15 10:55 | RADRPT ---
EXAM DATE/TIME: 12/15/2016 10:25 [facility] COMPARISON: CHEST SINGLE AP, December 09, 2016, 15:57. INDICATIONS : Fever since yesterday. MEDICAL HISTORY : Cardiovascular disease. SURGICAL HISTORY : CABG. ENCOUNTER: Subsequent ACUITY: 4 - 6 days PAIN SCORE: 0/10 LOCATION: Bilateral chest FINDINGS: There is mild bilateral perihilar interstitial infiltrate. Slight probable atelectasis in the right m idlung is again noted. There is mild airspace opacity in the right lung base. Cardiac contours are st able. CONCLUSION: Mild developing infiltrates. Gary He MD on December 15, 2016 at 10:52 Board Certified Radiologist. This report was verified electronically.
--- NOTE | 2016-12-15 13:08 | HHI.IDPN ---
Subjective Subjective Remarks Pt had some low grade fevers since yday after he spiked to 102.8 F No headache - resolved after his valtrex was stopped no new c/o Antibiotics none Allergies: Coded Allergies: No Known Allergies (Verified Allergy, Unknown, 12/09/16) Objective . Vital Signs Date Time Temp Pulse Resp B/P (MAP) Pulse Ox O2 Delivery O2 Flow Rate FiO2 12/15/16 08:42 Room Air 12/15/16 04:00 98.7 92 20 168/82 (110) 95 12/15/16 00:00 100.1 86 18 167/88 (114) 97 12/14/16 20:00 98.7 88 20 165/84 (111) 97 12/14/16 18:25 98.4 89 151/84 (106) 12/14/16 16:15 Room Air 12/14/16 16:00 99.9 104 18 173/100 (124) 92 12/14/16 15:32 102.3 . Laboratory Tests Test 12/15/16 06:20 White Blood Count 9.2 TH/MM3 Red Blood Count 4.44 MIL/MM3 Hemoglobin 13.6 GM/DL Hematocrit 39.4 % Mean Corpuscular Volume 88.8 FL Mean Corpuscular Hemoglobin 30.7 PG Mean Corpuscular Hemoglobin Concent 34.6 % Red Cell Distribution Width 15.0 % Platelet Count 295 TH/MM3 Mean Platelet Volume 7.9 FL Neutrophils (%) (Auto) 75.6 % Lymphocytes (%) (Auto) 11.3 % Monocytes (%) (Auto) 9.1 % Eosinophils (%) (Auto) 3.4 % Basophils (%) (Auto) 0.6 % Neutrophils # (Auto) 7.0 TH/MM3 Lymphocytes # (Auto) 1.0 TH/MM3 Monocytes # (Auto) 0.8 TH/MM3 Eosinophils # (Auto) 0.3 TH/MM3 Basophils # (Auto) 0.1 TH/MM3 CBC Comment DIFF FINAL Differential Comment Laboratory Tests Test 12/13/16 16:00 12/14/16 18:05 12/15/16 06:20 Potassium Level 3.3 MEQ/L 3.4 MEQ/L C-Reactive Protein 18.40 MG/DL Lactic Acid Level 1.1 mmol/L Blood Urea Nitrogen 9 MG/DL Creatinine 0.64 MG/DL Random Glucose 83 MG/DL Total Protein 7.2 GM/DL Albumin 2.5 GM/DL Calcium Level 8.0 MG/DL Alkaline Phosphatase 125 U/L Aspartate Amino Transf (AST/SGOT) 35 U/L Alanine Aminotransferase (ALT/SGPT) 55 U/L Total Bilirubin 0.7 MG/DL Sodium Level 136 MEQ/L Chloride Level 105 MEQ/L Carbon Dioxide Level 19.7 MEQ/L Anion Gap 11 MEQ/L Estimat Glomerular Filtration Rate 125 ML/MIN Microbiology Date/Time Source Procedure Growth Status 12/14/16 18:05 Blood Peripheral Aerobic Blood Culture - Preliminary NO GROWTH IN 1 DAY Resulted 12/14/16 18:05 Blood Peripheral Anaerobic Blood Culture - Preliminary NO GROWTH IN 1 DAY Resulted 12/14/16 18:00 Blood Peripheral Aerobic Blood Culture - Preliminary NO GROWTH IN 1 DAY Resulted 12/14/16 18:00 Blood Peripheral Anaerobic Blood Culture - Preliminary NO GROWTH IN 1 DAY Resulted 12/14/16 17:47 Nasal Washing Influenza Types A,B Antigen ([place]) - Final NEGATIVE FOR FLU A AND B ANTIGEN.... Complete Imaging Last Last Impressions Chest X-Ray 12/15/16 0000 Signed Impressions: Service Date/Time: , December 15, 2016 10:25 - CONCLUSION: Mild developing infiltrates. Gary He MD Physical Exam CONSTITUTIONAL/GENERAL: This is an adequately nourished patient, in no apparent distress. TUBES/LINES/DRAINS: SKIN: No jaundice, lesions. Ecchymoses on upper extremities. No wounds seen anteriorly. Skin temperature appropriate. Not diaphoretic. Disseminated rash with multiple elements, including macules, papules and pustules involving hands, evolving - half of lesions are resolved, no new lesions since yday Large lesion on R knee - dryed out Hand lesions - drying out ? new scattered lesions on feet : none since yday EYES: Pupils equal and round and reactive. Extraocular motions intact. No scleral icterus. No injection or drainage. Fundi not examined. ENT: Hearing grossly normal. Nose without bleeding or purulent drainage. Multiple shallow ulcerative lesions involving toung, b/l buccal area and inner lips NECK: Trachea midline. Supple, nontender. CARDIOVASCULAR: Regular rate and rhythm without murmurs, gallops, or rubs. No JVD. Peripheral pulses symmetric. RESPIRATORY/CHEST: Symmetric, unlabored respirations. Clear to auscultation. Breath sounds equal bilaterally. No wheezes, rales, or rhonchi. GASTROINTESTINAL: Abdomen soft, non-tender, nondistended. No hepato-splenomegaly , or palpable masses. No guarding. Bowel sounds present. MUSCULOSKELETAL: Extremities without clubbing, cyanosis, or edema. No joint tenderness or effusion noted. No calf tenderness. No mottling or clubbing. 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 NEUROLOGICAL: Awake and alert. Motor and sensory grossly within normal limits. Follows commands. Clear speech. Moves all extremities. Non focal PSYCHIATRIC: calm, cooperative Assessment & Plan Remarks Assessment and Plan Febrile illness with exanthea and enathema, most likely viral disease consider hand-foot- and mouth disease neg HIV neg VZV DNA neg RPR neg HSV Doubt chicken pox due to atrypical presentation (non pruritic lesions, relatevely benighn course in an elderly pt ) and host's age; Pt mproved clinically and is probably will be eligible to dc if remains afebrile x 24 hrs Headache, doubt meningitis - most likley valtrex (very frequently reported) : - resolved after valtrex stopped New pulmomnaty infiltrats Consider also unusual Mycoplasma infection presentation - fu P w/u ordered: CMV, bl clx, flu (negative), mycoplasma serologies start Azithromycin Discussed Condition With Dolores Zepeda Dr, MD Dec 15, 2016 13:08
[2016-12-15] MEDS ORDERED: AZITHROMYCIN 250 MG TAB PO ONE (14:00)
[2016-12-15] MEDS: ENOXAPARIN SODIUM 40 MG/0.4 ML SYRINGE SQ SCH (16:40)
[2016-12-15] MEDS ORDERED: CAFFEINE PO PRN (19:15)
[2016-12-15] MEDS ORDERED: EXCEDRIN EXTRA STRENGTH PO PRN (19:15)
[2016-12-15] MEDS ORDERED: ASA PO PRN (19:15)
[2016-12-16] VITALS: BP 153/80; PULSE 84; RESP 20; TEMP 98.4; O2SAT 97
[2016-12-16] MEDS: diphenhydrAMINE HCL 25 MG CAP PO PRN (02:51)
[2016-12-16 04:00] VITALS: BP 161/89; PULSE 84; RESP 20; TEMP 98.6; O2SAT 96
[2016-12-16 08:00] VITALS: BP 160/81; PULSE 86; RESP 18; TEMP 98.5; O2SAT 94
[2016-12-16] MEDS: SODIUM CHLOR 0.9% 1000 ML INJ 1,000 ML IV SCH ×2 (08:40→16:53)
[2016-12-16] MEDS: LISINOPRIL 20 MG TAB PO SCH (09:30)
[2016-12-16] MEDS: SODIUM CHLORIDE 0.9% FLUSH 10 ML FLUSH IV FLUSH SCH ×2 (09:30→20:19)
[2016-12-16] MEDS: AZITHROMYCIN 250 MG TAB PO SCH (09:30)
[2016-12-16] MEDS: DOCUSATE SODIUM 50 MG/SENNA 8.6 MG TAB PO SCH ×2 (09:31→20:19)
[2016-12-16] MEDS: METOPROLOL SUCCINATE 25 MG EXTENDED RELEASE TAB PO SCH (09:31)
--- NOTE | 2016-12-16 11:47 | HHI.PR ---
Subjective Remarks overall feeling much better today. rash is better. T max 100.8. no other complaints. d/w the RN. Objective Vitals Vital Signs Date Time Temp Pulse Resp B/P (MAP) Pulse Ox O2 Delivery O2 Flow Rate FiO2 12/16/16 08:00 98.5 86 18 160/81 (107) 94 12/16/16 08:00 Room Air 12/16/16 04:00 98.6 84 20 161/89 (113) 96 12/16/16 00:00 98.4 84 20 153/80 (104) 97 12/15/16 20:00 97.8 109 20 155/91 (112) 97 12/15/16 18:06 Room Air 12/15/16 18:00 100.8 12/15/16 16:00 94 18 159/82 (107) 96 12/15/16 15:59 Room Air 12/15/16 12:00 Room Air 12/15/16 12:00 98.5 91 18 160/92 (114) 96 I/O 12/15/16 12/15/16 12/15/16 12/16/16 12/16/16 12/16/16 07:00 15:00 23:00 07:00 15:00 23:00 Intake Total 1440 ml 1990 ml 360 ml Output Total 1300 ml 2400 ml Balance 1440 ml 690 ml -2040 ml Intake Oral 720 ml 720 ml 360 ml IV Total 720 ml 1270 ml Output Urine Total 1300 ml 2400 ml # Voids 3 # Bowel Movements 0 Result Diagram: 12/15/16 0620 12/15/16 0620 Imaging Last Impressions Chest X-Ray 12/15/16 0000 Signed Impressions: Service Date/Time: December 10:25 - CONCLUSION: Mild developing infiltrates. Gary He MD Objective Remarks GENERAL: This is a well-nourished, well-developed patient, in no apparent distress. CARDIOVASCULAR: Regular rate and regular rhythm without murmurs, gallops, or rubs. RESPIRATORY: Clear to auscultation. Breath sounds equal bilaterally. No wheezes , rales, or rhonchi. GASTROINTESTINAL: Abdomen soft, non-tender, nondistended. Normal, active bowel sounds MUSCULOSKELETAL: Extremities without clubbing, cyanosis, or edema. NEURO: Alert & Oriented x4 to person, place, time, situation. Moves all ext x4 skin; rash ( exanthem and enanthem) noted on the hands,legs, trunk and the mouth Procedures none Medications and IVs Current Medications Sodium Chloride 1,000 ml @ 100 mls/hr Q10H IV Last administered on 12/09/16 22:50; Start 12/09/16 at 15:15; Stop 12/11/16 at 15:32; Status DC Acyclovir Sodium 500 mg/Sodium Chloride 100 ml @ 100 mls/hr ONCE ONCE IV Last administered on 12/09/16 16:34; Start 12/09/16 at 16:00; Stop 12/09/16 at 16:59; Status DC Acetaminophen (Tylenol) 650 mg ONCE ONCE PO Last administered on 12/09/16 16: 52; Start 12/09/16 at 16:45; Stop 12/09/16 at 16:46; Status DC Sodium Chloride 1,000 ml @ 100 mls/hr Q10H IV Last administered on 12/16/16 08:40; Start 12/09/16 at 16:40 Sodium Chloride (NS Flush) 2 ml UNSCH PRN IV FLUSH FLUSH AFTER USING IV ACCESS ; Start 12/09/16 at 16:45 Sodium Chloride (NS Flush) 2 ml BID IV FLUSH Last administered on 12/14/16 09: 15; Start 12/09/16 at 21:00 Acetaminophen (Tylenol) 650 mg Q4H PRN PO TEMP > 100.4 Last administered on 16:20; Start 12/09/16 at 16:45 Ondansetron HCl (Zofran Inj) 4 mg Q6H PRN IVP NAUSEA OR VOMITING; Start at 16:45 Enoxaparin Sodium (Lovenox Inj) 40 mg Q24H SQ Last administered on 12/15/16 16 :40; Start 12/09/16 at 17:00 Naloxone HCl (Narcan Inj) 0.4 mg UNSCH PRN IV PUSH SEE LABEL COMMENTS; Start 12/09/16 at 16:45 Senna/Docusate Sodium (Ambreen-Colace) 1 tab BID PO Last administered on 08:38; Start 12/09/16 at 21:00 Magnesium Hydroxide (Milk Of Magnesia Liq) 30 ml Q12H PRN PO Mild constipation ; Start 12/09/16 at 16:45 Sennosides (Senokot) 17.2 mg Q12H PRN PO Moderate constipation; Start 12/09/16 at 16:45 Bisacodyl (Dulcolax Supp) 10 mg DAILY PRN RECTAL SEVERE CONSITIPATION; Start 12/09/16 at 16:45 Lactulose (Lactulose Liq) 30 ml DAILY PRN PO SEVERE CONSITIPATION; Start at 16:45 Diphenhydramine HCl (Benadryl) 25 mg Q6H PRN PO RASH Last administered on 12/16 02:51; Start 12/09/16 at 16:45 Valacyclovir HCl (Valtrex) 1,000 mg Q8HR PO Last administered on 12/13/16 14: 19; Start 12/09/16 at 17:15; Stop 12/13/16 at 16:54; Status DC Acetaminophen/ Hydrocodone Bitart ([place] 5-325 Mg) 1 tab Q4H PRN PO PAIN SCALE 1 TO 5 Last administered on 12/15/16 04:16; Start 12/09/16 at 17:15 Morphine Sulfate (Morphine Inj) 2 mg Q4H PRN IM PAIN SCALE 6 TO 10; Start 12/09 at 17:15 Lisinopril (Prinivil) 20 mg DAILY PO Last administered on 12/16/16 09:30; Start 12/10/16 at 09:00 Metoprolol Succinate (Toprol Xl) 12.5 mg DAILY PO Last administered on 09:31; Start 12/10/16 at 09:00 Multi-Ingredient Mouthwash/Gargle (Magic Mouthwash Adult Liq) 5 ml QID SWISH- SWAL Last administered on 12/10/16 22:21; Start 12/10/16 at 18:00; Stop at 15:32; Status DC Potassium Chloride (KCl) 40 meq NOW ONCE PO Last administered on 12/13/16 18: 54; Start 12/13/16 at 18:45; Stop 12/13/16 at 18:46; Status DC Potassium Chloride (KCl) 20 meq ONCE ONCE PO Last administered on 12/15/16 10 :06; Start 12/15/16 at 10:00; Stop 12/15/16 at 10:01; Status DC Clonidine (Catapres) 0.1 mg Q8HR PRN PO SBP> OR = 180, DBP> OR = 100; Start at 10:00 Azithromycin (Zithromax) 500 mg ONCE ONCE PO Last administered on 12/15/16 15 :53; Start 12/15/16 at 14:00; Stop 12/15/16 at 14:01; Status DC Azithromycin (Zithromax) 250 mg DAILY PO Last administered on 12/16/16 09:30 ; Start 12/16/16 at 09:00 Patient Own Medication PT OWN MED: 2 TABS... DAILY PRN PO HEADACHE; Start 12/15 at 19:15 A/P Assessment and Plan A/P 1. febrile illness with enanthem and exanthem; suspect hand,foot and mouth disease- with recurrent fever- although the temps are better. off Valtrex now- continue supportive care-HIV antibody negative.HSV PCR negative. blood cultures repeated and negative so far. ID follow-up appreciated. 2. OA by history 3. Hypertension- continue home medicines- clonidine as needed. 4. Hyperlipidemia - resumed statin upon discharge. 5. CAD status post CABG x 3 in 2008 DVT prophylaxis with Lovenox Discharge Planning dc home when cleared by ID. Rosalio Brooke MD Dec 16, 2016 11:47
[2016-12-16 12:00] VITALS: BP 150/80; PULSE 82; RESP 18; TEMP 98.7; O2SAT 96
--- NOTE | 2016-12-16 15:05 | HHI.IDPN ---
Subjective Subjective Remarks No fever No cough No headache Antibiotics Zpack Allergies: Coded Allergies: No Known Allergies (Verified Allergy, Unknown, 12/09/16) Uncoded Allergies: Magic Mouthwash (Allergy, Intermediate, Rash, 12/16/16) tongue swelling, rash Objective . Vital Signs Date Time Temp Pulse Resp B/P (MAP) Pulse Ox O2 Delivery O2 Flow Rate FiO2 12/16/16 12:00 98.7 82 18 150/80 (103) 96 12/16/16 08:00 98.5 86 18 160/81 (107) 94 12/16/16 08:00 Room Air 12/16/16 04:00 98.6 84 20 161/89 (113) 96 12/16/16 00:00 98.4 84 20 153/80 (104) 97 12/15/16 20:00 97.8 109 20 155/91 (112) 97 12/15/16 18:06 Room Air 12/15/16 18:00 100.8 12/15/16 16:00 94 18 159/82 (107) 96 12/15/16 15:59 Room Air . Laboratory Tests Test 12/15/16 06:20 White Blood Count 9.2 TH/MM3 Red Blood Count 4.44 MIL/MM3 Hemoglobin 13.6 GM/DL Hematocrit 39.4 % Mean Corpuscular Volume 88.8 FL Mean Corpuscular Hemoglobin 30.7 PG Mean Corpuscular Hemoglobin Concent 34.6 % Red Cell Distribution Width 15.0 % Platelet Count 295 TH/MM3 Mean Platelet Volume 7.9 FL Neutrophils (%) (Auto) 75.6 % Lymphocytes (%) (Auto) 11.3 % Monocytes (%) (Auto) 9.1 % Eosinophils (%) (Auto) 3.4 % Basophils (%) (Auto) 0.6 % Neutrophils # (Auto) 7.0 TH/MM3 Lymphocytes # (Auto) 1.0 TH/MM3 Monocytes # (Auto) 0.8 TH/MM3 Eosinophils # (Auto) 0.3 TH/MM3 Basophils # (Auto) 0.1 TH/MM3 CBC Comment DIFF FINAL Differential Comment Laboratory Tests Test 12/14/16 18:05 12/15/16 06:20 Lactic Acid Level 1.1 mmol/L Blood Urea Nitrogen 9 MG/DL Creatinine 0.64 MG/DL Random Glucose 83 MG/DL Total Protein 7.2 GM/DL Albumin 2.5 GM/DL Calcium Level 8.0 MG/DL Alkaline Phosphatase 125 U/L Aspartate Amino Transf (AST/SGOT) 35 U/L Alanine Aminotransferase (ALT/SGPT) 55 U/L Total Bilirubin 0.7 MG/DL Sodium Level 136 MEQ/L Potassium Level 3.4 MEQ/L Chloride Level 105 MEQ/L Carbon Dioxide Level 19.7 MEQ/L Anion Gap 11 MEQ/L Estimat Glomerular Filtration Rate 125 ML/MIN Microbiology Date/Time Source Procedure Growth Status 12/14/16 18:05 Blood Peripheral Aerobic Blood Culture - Preliminary NO GROWTH IN 2 DAYS Resulted 12/14/16 18:05 Blood Peripheral Anaerobic Blood Culture - Preliminary NO GROWTH IN 2 DAYS Resulted 12/14/16 18:00 Blood Peripheral Aerobic Blood Culture - Preliminary NO GROWTH IN 2 DAYS Resulted 12/14/16 18:00 Blood Peripheral Anaerobic Blood Culture - Preliminary NO GROWTH IN 2 DAYS Resulted 12/14/16 17:47 Nasal Washing Influenza Types A,B Antigen ([place]) - Final NEGATIVE FOR FLU A AND B ANTIGEN.... Complete Imaging [place] Last Impressions Chest X-Ray 12/15/16 0000 Signed Impressions: Service Date/Time: December 10:25 - CONCLUSION: Mild developing infiltrates. Gary He MD Physical Exam CONSTITUTIONAL/GENERAL: This is an adequately nourished patient, in no apparent distress. TUBES/LINES/DRAINS: SKIN: No jaundice, lesions. Ecchymoses on upper extremities. No wounds seen anteriorly. Skin temperature appropriate. Not diaphoretic. Disseminated rash with multiple elements, including macules, papules and pustules involving hands, evolving - half of lesions are resolved, no new lesions since yday Large lesion on R knee - dryed out Hand lesions - drying out ? new scattered lesions on feet : none since yday EYES: Pupils equal and round and reactive. Extraocular motions intact. No scleral icterus. No injection or drainage. Fundi not examined. ENT: Hearing grossly normal. Nose without bleeding or purulent drainage. Multiple shallow ulcerative lesions involving toung, b/l buccal area and inner lips CARDIOVASCULAR: Regular rate and rhythm without murmurs, gallops, or rubs. No JVD. Peripheral pulses symmetric. RESPIRATORY/CHEST: Symmetric, unlabored respirations. Clear to auscultation. Breath sounds equal bilaterally. No wheezes, rales, or rhonchi. GASTROINTESTINAL: Abdomen soft, non-tender, nondistended. No hepato-splenomegaly , or palpable masses. No guarding. Bowel sounds present. MUSCULOSKELETAL: Extremities without clubbing, cyanosis, or edema. No joint tenderness or effusion noted. No calf tenderness. No mottling or clubbing. 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 NEUROLOGICAL: Awake and alert. Motor and sensory grossly within normal limits. Follows commands. Clear speech. Moves all extremities. Non focal PSYCHIATRIC: calm, cooperative Assessment & Plan Remarks Assessment and Plan Febrile illness with exanthea and enathema, most likely viral disease consider hand-foot- and mouth disease neg HIV neg VZV DNA neg RPR neg HSV neg CMV Doubt chicken pox due to atrypical presentation (non pruritic lesions, relatevely benighn course in an elderly pt ) and host's age; - VZV senior sales representative c/w past disease @ the time of presentation: essetially ruling out Varicella diagnosis Headache, doubt meningitis - most likley valtrex (very frequently reported) : - resolved after valtrex stopped New pulmomnaty infiltrats Consider also unusual Mycoplasma infection presentation - fu P w/u ordered conplete 5 days of Azithromycin Pt mproved clinically and is probably will be eligible to dc if remains afebrile x 24 hrs Discussed Condition With pt Dolores Andrade MD Dec 16, 2016 15:05
[2016-12-16 16:00] VITALS: BP 124/60; PULSE 80; RESP 18; TEMP 98.6; O2SAT 94
[2016-12-16] MEDS: ENOXAPARIN SODIUM 40 MG/0.4 ML SYRINGE SQ SCH (16:56)
[2016-12-16 20:00] VITALS: BP 148/81; PULSE 94; RESP 20; TEMP 99; O2SAT 99
[2016-12-17 00:03] VITALS: BP 139/88; PULSE 70; RESP 20; TEMP 97.6; O2SAT 96
[2016-12-17 04:00] VITALS: BP 121/60; PULSE 61; RESP 20; TEMP 97.9; O2SAT 96
[2016-12-17] MEDS: SODIUM CHLOR 0.9% 1000 ML INJ 1,000 ML IV SCH (04:40)
[2016-12-17 08:23] VITALS: BP 138/78; PULSE 83; RESP 18; TEMP 98.2; O2SAT 97
[2016-12-17] MEDS: SODIUM CHLORIDE 0.9% FLUSH 10 ML FLUSH IV FLUSH SCH (09:00)
[2016-12-17] MEDS: DOCUSATE SODIUM 50 MG/SENNA 8.6 MG TAB PO SCH (09:43)
[2016-12-17] MEDS: METOPROLOL SUCCINATE 25 MG EXTENDED RELEASE TAB PO SCH (09:44)
[2016-12-17] MEDS: AZITHROMYCIN 250 MG TAB PO SCH (09:44)
[2016-12-17] MEDS: LISINOPRIL 20 MG TAB PO SCH (09:44)
[2016-12-17 11:51] LABS: HIV RNA COPIES LESS THAN 20.0 (<20); HIV RNA LOG COPIES LESS THAN 1.30 (<1.30)
[2016-12-17 12:08] VITALS: BP 146/91; PULSE 83; RESP 18; TEMP 98.6; O2SAT 98
[2016-12-17] MEDS ORDERED: AZIT250T3 PO (13:16)
--- NOTE | 2016-12-17 16:59 | HHI.DS ---
Discharge Summary Admission Date Dec 09, 2016 at 15:57 Discharge Date: Dec 17, 2016 Admitting Diagnosis VARICELLA (1) Rash ICD Code: R21 - Rash and other nonspecific skin eruption Diagnosis: Principal Procedures none Brief History - From Admission This is a pleasant 66 y/o male who came to ER with Fever and rash, also complaint of sore throat he was seen in emergency room yesterday with the same symptomatology was given supportive care but today is evident his compromise, the rash has worsened now multiple lesions inside his mouth, also some rash on his body and extremities, has persistent fever of 101F the patient has OA, Hyperlipidemia, GERD, Hypertension, OPAL. Patient seen in the presence of his he has painful lesions in his mouth and in his back, neck, chest and extremities, due to his actual oral compromise received Acyclovir IV will continue management with antiviral therapy, CBC/BMP: 12/15/16 0620 12/15/16 0620 Significant Findings Laboratory Tests Test 12/14/16 18:05 12/15/16 06:20 12/15/16 13:35 Red Blood Count 4.44 MIL/MM3 (4.50-5.90) Neutrophils (%) (Auto) 75.6 % (16.0-70.0) Monocytes (%) (Auto) 9.1 % (0.0-8.0) Albumin 2.5 GM/DL (3.4-5.0) Calcium Level 8.0 MG/DL (8.5-10.1) Alkaline Phosphatase 125 U/L (45-117) Potassium Level 3.4 MEQ/L (3.5-5.1) Carbon Dioxide Level 19.7 MEQ/L (21.0-32.0) PE at Discharge GENERAL: This is a well-nourished, well-developed patient, in no apparent distress. CARDIOVASCULAR: Regular rate and regular rhythm without murmurs, gallops, or rubs. RESPIRATORY: Clear to auscultation. Breath sounds equal bilaterally. No wheezes , rales, or rhonchi. GASTROINTESTINAL: Abdomen soft, non-tender, nondistended. Normal, active bowel sounds MUSCULOSKELETAL: Extremities without clubbing, cyanosis, or edema. NEURO: Alert & Oriented x4 to person, place, time, situation. Moves all ext x4 skin; rash ( exanthem and enanthem) noted on the hands,legs, trunk and the mouth Hospital Course Patient was admitted for a rash including patient had bilateral knees hands and mouth. [id number] disease versus other viral etiology suspected. Coverage for risk of secondary bacterial infection mouth provided. Fevers were a prominent problem. He was evaluated for bacterial etiologies of this testing has resulted as negative. Patient was previously discharge but discharge held secondary to recurrence of fevers. He has not been fever free for greater than 24 hours. Medically stable for discharge to home today. She will discharged with 3 more days of azithromycin to complete 5 day treatment. Pt Condition on Discharge: Stable Discharge Disposition: Discharge Home Discharge Time: <= 30 minutes Discharge Instructions DIET: Follow Instructions for: Heart Healthy Diet Activities you can perform: Regular-No Restrictions Follow up Referrals: PCP Follow-up New Medications: Azithromycin (Azithromycin) 250 Mg Tab 250 MG PO DAILY for Infection, #3 TAB Continued Medications: Lisinopril (Lisinopril) 20 Mg Tab 20 MG PO DAILY, #30 TAB 0 Refills Metoprolol Tartrate (Metoprolol Tartrate) 25 Mg Tab Unknown Dose PO DAILY, #30 TAB 0 Refills Simvastatin (Simvastatin) 5 Mg Tab Unknown Dose PO DAILY for Cholesterol Management, #30 TAB 0 Refills Randy David MD Dec 17, 2016 16:59
== END 2016-12-17 17:05 | disposition home or self-care (01) | DRG 866 ==
LOC: NEPD 13:30 → NEDA 15:57 → N04B 17:34 → NEDA 17:47 → NEDH 19:52 → N04A 22:24 → N04B 12-14 11:13
PROVIDERS: ADMIT Internal Medicine; ATTEND Hospitalist
DX: B08.4 Enteroviral vesicular stomatitis with exanthem (principal); I10 Essential (primary) hypertension; R50.9 Fever, unspecified; G44.40 Drug-induced headache, not elsewhere classified, not intractable; G47.33 Obstructive sleep apnea (adult) (pediatric); B34.9 Viral infection, unspecified; E78.5 Hyperlipidemia, unspecified; R91.8 Other nonspecific abnormal finding of lung field; I25.10 Atherosclerotic heart disease of native coronary artery without angina pectoris; K44.9 Diaphragmatic hernia without obstruction or gangrene; K21.9 Gastro-esophageal reflux disease without esophagitis; T37.5X5A Adverse effect of antiviral drugs, initial encounter; Z95.1 Presence of aortocoronary bypass graft; R21 Rash and other nonspecific skin eruption; R53.1 Weakness; E78.00 Pure hypercholesterolemia, unspecified; Z23 Encounter for immunization; Z87.39 Personal history of other diseases of the musculoskeletal system and connective tissue; Z86.79 Personal history of other diseases of the circulatory system; Z87.19 Personal history of other diseases of the digestive system; Z86.69 Personal history of other diseases of the nervous system and sense organs
CPT/HCPCS: 71010; 76937; 80048; 80053; 80061; 80076; 81001; 83036; 83605; 84132; 84443; 85025; 85610; 85652; 85730; 86140; 86592; 86703; 86738; 86787; 87040; 87252; 87497; 87529; 87536; 87798; 87804; 90471; 90714; 96374; J0133; J1650; J1885; J7030